=== PATIENT | male | born 1970 | race Caucasian/White ===

== ENCOUNTER 2023-10-04 13:08 | Outpatient (POV) | payer BC, SELFPAY ==
--- NOTE | 2023-10-04 13:27 | EXP.PAIN.OV ---
HPI Data of Consult Patient: new to practice Consult date: 10/04/23 Requesting Physician: Veronique Hernández APRN Consult Narrative Reason for consult: Low back pain, bilateral hip pain History of present illness: Mr. Giron is a 53 year old male who presents today as a new patient. He is a referral from Aramis Hernández's office. Today he rates his pain a 5 out of 10. Patient states that he has chronic pain it has been going on for 18+ years related to an injury that he occurred. Patient states that at that time he tried multiple interventions however the only thing that ever really gave improvement was lumbar RFA's. Patient states he is now have not several and he typically gets at least 80% relief in the last on average 24 months. Patient does state that he had been getting these with Dr. Orantes however he has not been pleased with that provider and wanted to change offices. Patient states that currently he is not at the 2-year erasto up until closer to February. Patient does state that he has started to feel a little bit more in his low back however overall right now it is still manageable. He does state when his back goes out it is very random and can be the simplest thing. He does also state that he is starting to experience more pain in and around his low back and hip area and that this is newer. He states it has been going on for the last year and he does believe part of it is related to gaining about 75 pounds. Patient did talk to his provider regarding this and believes a lot of that was noted to the right groin. Patient has had recent imaging back at the end of 2022. Patient does use a back brace occasionally to help with overall symptoms and continues to do conservative treatments such as heat and ice and topicals. Patient is currently managed with diclofenac 75 mg twice daily and gabapentin 300 mg 3 times daily. He denies any side effects from this medication. He does state that he would like us to take over these prescriptions if possible in the future. Patient states that he does not need refills at this time that he only uses it as needed and so it is not something he continuously takes.Patient is currently managed with gabapentin 300 mg 3 times a day from an outside provider. His Leonard has been reviewed and is appropriate. CC: Veronique Hernández APRN [facility] Disclaimer: The information contained in this section may have been updated after the patient was seen, as this information can be updated by other users. Medical History (Updated 10/04/23 @ 16:06 by Veronique Hernández APRN) MACO (obstructive sleep apnea) Surgical History (Updated 10/04/23 @ 14:02 by Louann Estrada RN) H/O hernia repair Family History (Updated 10/04/23 @ 14:02 by Louann Estrada RN) Other No significant family history Social History (Updated 10/04/23 @ 14:30 by Louann Estrada RN) Smoking Status: Never smoker alcohol intake: never current occupational status: other Travel in the last 8 weeks: None Review of Systems Review of Systems Review of systems:: pertinent systems reviewed and negative unless documented below Review of systems (narrative): Review of Systems: General: No recent weight changes, no fever, no sleep disturbances Respiratory: No cough, no shortness of air, no recurring pulmonary infections Cardiovascular/peripheral vascular: No chest pain, no palpitations, no edema, no shortness of breath Gastrointestinal: No new onset incontinence, normal bowel movements reported Genitourinary: No new onset incontinence Musculoskeletal: Low back pain, bilateral hip pain Psychiatric: [Normal mood/affect] Neurological: [Denies weakness in extremities], [denies balance issues] Meds Home Medications and Allergies Home Medications Medication Instructions Recorded Confirmed Type diclofenac sodium 75 mg 75 mg PO BID Pain 10/04/23 10/04/23 History tablet,delayed release gabapentin 300 mg capsule 300 mg PO TID Pain 10/04/23 10/04/23 History New Prescriptions to Start Prescriptions: Objective Narrative: Physical Exam: General: Alert and oriented x3, no acute distress, pleasant and cooperative Lungs: Respirations even and unlabored, symmetrical chest expansion Eyes: PERRL Musculoskeletal: Flexion and extension of lumbar [spine] somewhat guarded secondary to pain, [antalgic gait noted] positive Kemps test and point tenderness along bilateral SIs with positive bilateral Bigg's, Joya's, Gaenslen's, compression and distraction exam Neurological: Speech clear, no gross sensory deficit Additional findings Additional findings: Lumbar MRI without contrast 12/04/2022 Findings: Vertebral alignment is normal. No evidence of fracture. No bony mass identified. no spondylolysis. There is spondylolisthesis. The facet joints are anatomically aligned. Mild degenerative disc bulging at L4-L5 and L5-S1 otherwise there is no spinal stenosis or significant foraminal stenosis. Mild facet hypertrophic changes at L4-L5 and L5-S1 Assessment and Plan *Assessment and plan (1) Degenerative disc disease, lumbar: Status: Acute Category: Medical Code(s): M51.36 - Other intervertebral disc degeneration, lumbar region (2) Lumbar facet arthropathy: Status: Acute Category: Medical Code(s): M47.816 - Spondylosis without myelopathy or radiculopathy, lumbar region (3) Sacroiliitis: Status: Acute Category: Medical Code(s): M46.1 - Sacroiliitis, not elsewhere classified Plan Patient is experiencing significant pain in and around his low back and hips. I did discuss with the patient that he may benefit from bilateral SI injections as well as continued treatment with his lumbar RFA's in the future. Patient would like to wait before proceeding forward with the SI injections. Patient did discuss that sometimes when his back flares up that he has to take off work and use FMLA. I did senior vice president & general counsel the patient that we do not fill out this paperwork unless the patient has had a surgery with's or a significant injury such as a compression fracture. Patient did have additional questions regarding who he would go to for this. Patient was counseled that we do recommend they follow-up with her primary care provider. I did senior vice president & general counsel the patient that in future I do not have a problem refilling his diclofenac or gabapentin prescriptions and that just to call us when he needs refills. Patient was counseled that we would see him every few months if we do start doing the prescriptions patient is agreeable to this. Patient will make a follow-up appointment in the next few months. Patient has been instructed to contact the clinic with any concerns before the next appointment. Dr. Albrecht has reviewed this note and agrees with this plan of care. This note was dictated using voice recognition software and make contain errors or omissions.
[2023-10-04 14:30] VITALS: BP 151/75; PULSE 55; RESP 20; O2SAT 98; BMI 41.5
== END 2023-10-04 23:59 | disposition home or self-care (01) ==
LOC: SC.PAIN 13:11
PROVIDERS: Visit Provider Nurse Practitioner Family
DX: G89.29 Other chronic pain (principal); M51.36 Other intervertebral disc degeneration, lumbar region; M47.816 Spondylosis without myelopathy or radiculopathy, lumbar region
CPT/HCPCS: 99202; G0463

== ENCOUNTER 2024-02-07 11:17 | Outpatient (POV) | payer BC, SELFPAY ==
--- OUTSIDE RECORDS SUMMARY | 2024-02-07 11:22 | XMS_ITS | Encounter Summary ---
Author Organization [facility] Address [address] [place] [address] Phone [email or web address] [email or web address] Care Team Providers Care Magnesium Mill Operator Name Role Phone Provider, No Primary Care Provider Unavailabl e Reason for Visit * Reason Comments Return to Work / Duty Encounter Details Date Type Department Care Team (Latest Contact Info) Description 11/16/2022 1:30 PM EDT Clinical Support GINNYSTACIE [address] [place] [address] Arvin Kuhn RN [address] [place] [address] Return to work evaluation (Primary Dx) Social History Tobacco Use Types Packs/Day Years Used Date Smoking Tobacco: Never Smokeless Tobacco: Never Alcohol Use Standard Drinks/Week Comments Never 0 (1 standard drink = 0.6 oz pur e alcohol) Intimate Partner Violence Answer Date R ecorded Insults You Not on file 11/13/2020 Threatens You Not on file 11/13/2020 Screams at You Not on file 11/13/2020 Physically Hurt Not on file 11/13/2020 Intimate Partner Violence Score Not on file 11/13/2020 Alcohol Use Answer Date Recorded Alcohol Use Status Never 11/13/2020 Depression Answer Date Recorded PHQ Total Score 0 01/01/2022 Sex and Gender Information Value Date Recorded Sex Assigned at Not on file Legal Sex Male 7:14 AM CDT Gender Identity Not on file Sexual Orientation Not on file documented as of this encounter Patient Instructions * Patient Instructions* Arvin Kuhn RN - 11/16/2022 1:30 PM EDT RTW Regular Duty per release note RTC PRN documented in this encounter Progress Notes * Arvin Kuhn RN - 11/16/2022 1:30 PM EDT Subjective Willie Giron Jr is a 52 y.o. male who presents for personal return to work. 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 TM has denied claim from . TM states he was sent home due to denied claim from . TM states he went to Dr Kang and MRI order placed. TM states steroid injection in office has helped. TM states currently no pain at this time. TM states he feels ready to RTW. Triage nurse: ASC RN HPI History Reviewed: Tobacco Allergies Meds Med Hx Surg Hx Objective Visit Vitals Smoking Status Never Review of Systems PHQ-9 Total Score: 0 (11/16/2022 1:36 PM) Physical Exam Assessment: ICD-10-CM ICD-9-CM 1. Return to work evaluation Z76.89 V72.85 No orders of the defined types were placed in this encounter. Patient Instructions RTW Regular Duty per release note RTC PRN documented in this encounter Plan of Treatment Not on file documented as of this encounter Visit Diagnoses Diagnosis Return to work evaluation- Primary Other specified examination documented in this encounter Care Teams Magnesium Mill Operator Relationship Specialty Start Date End Date Provider, FRANCIA Leigh [address] PCP - General Coil Cutter 07/18/21 documented as of this encounter
--- OUTSIDE RECORDS SUMMARY | 2024-02-07 11:22 | XMS_ITS | Encounter Summary ---
Author Organization [facility] Address [address] [place] [address] Phone CareEverywhereSuppor [email or web address] Care Team Providers Care Skewer Up Name Role Phone Provider, No Primary Care Provider Unavailabl e Encounter Details Date Type Department Care Team (Late st Contact Info) Description 01/08/[address] [place] [address] Felicia Jaimes [address] [place] [address] Social History Tobacco Use Types Packs/Day Years [...] on file documented as of this encounter Miscellaneous Notes * Telephone Encounter - Felicia Jaimes - 01/08/2022 5:51 PM EDT Tm states he could not get into see Dr. Orantes today so he saw his PCP who placed him off work until he sees Dr. Orantes. He was also given medication..Tm has an appt at Dr. Orantes's office on 01/16/22 and expects to have his procedure then. He has talked with Carol Sanchez in [place] Tm said he thinks he will be fine to come back to work after he has the procedure. Advised Tm he needs to be released to regular duty to return. Tm agreed to email off-work not to CM. documented in this encounter Plan of Treatment Not on file documented as of this encounter Visit Diagnoses Not on filedocumented in this encounter Care Teams Skewer Up Relationship Specialty Start Date End Date Provider, Ariadna ARIASWFRANCIA Lehman [address] PCP - General Tapper Shank 07/18/21 documented as of this encounter
--- OUTSIDE RECORDS SUMMARY | 2024-02-07 11:22 | XMS_ITS | Encounter Summary ---
Author Organization [facility] Address [address] [place], [place] [id number] Phone CareEverywhereSuppor [email or web address]. Care Team Providers Care Commercial Makeup Artist Name Role Phone Provider, No Primary Care Provider Unavailabl e Reason for Visit * Reason Onset Date Comments Lumbosacral Impairment MSK 12/26/2021 AT [facility] Encounter Details Date Type Department Care Team (Late st Contact Info) Description 12/26/2021 Documentation [facility] Safety Ergo [address] [place] [address] Frank Guido [address] [place] [address] Social History Tobacco Use Types [...] Status Never 11/13/2020 Depression Answer Date Recorded PHQ-9 Total Score 0 12/25/2021 Sex and Gender Information Value Date Recorded Sex Assigned at Not on file Legal Sex Male 7:14 AM CDT Gender Identity Not on file Sexual Orientation Not on file documented as of this encounter Progress Notes * Frank Guido - 12/26/2021 6:03 PM EDT Willie Giron Jr is a 51 y.o. male who presents for follow up on lower back Workday ID: [id number] Appointment Date: 12/26/21 Appointment Start Time: 1802 Progress Report: TM states discomfort is feeling the same. TM states he has a history with his lower back. States the only method that helps relieve discomfort Group's utilization of EIA measures: Yes Any countermeasures in progress: n/a Improvement noted in the following areas: None Current Discomfort: 3/10 Worst Discomfort: 8/10 Location: diffuse low back Description: sharp Self countermeasures TM is completing: Ice, Heat, NSAIDS and Stretching Observation / Palpations: not assessed ROM assessed: not assessed MMT assessed: not assessed Care Administered: None PLAN Provider Contacted: No Recommend EI measures: Yes Recommended Countermeasures: Continue Previous Recommendations EIA: Asking 100% modification (however that is needed to modify) Appointment End Time: 1818 documented in this encounter Plan of Treatment Not on file documented as of this encounter Visit Diagnoses Not on filedocumented in this encounter Care Teams Commercial Makeup Artist Relationship Specialty Start Date End Date Provider, [place] [address] PCP - General Sketch Liner 07/18/21 documented as of this encounter
--- OUTSIDE RECORDS SUMMARY | 2024-02-07 11:22 | XMS_ITS | Encounter Summary ---
Author Organization [facility] Address [address] [place] [address] Phone CareEverywhereSuppor [email or web address] Care Team Providers Care Dry Wall Installations Mechanic Name Role Phone Provider, No Primary Care Provider Unavailabl e Encounter Details Date Type Department Care Team (Late st Contact Info) Description 01/08/2022 Telephone GINNYKEYLA [address] [place] [address] Felicia Jaimes [address] [place] [address] Social History Tobacco Use Types [...] Miscellaneous Notes * Telephone Encounter - Felicia Theodore - 01/08/2022 12:14 PM EDT Message received that 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 Pc to Tm- explained [facility] can not put him off work or cover his time without seeing him. Tm said he is planning on going down to see Dr. Orantes. Requested he call Cm after seeing him. documented in this encounter Plan of Treatment Not on file documented as of this encounter Visit Diagnoses Not on filedocumented in this encounter Care Teams Dry Wall Installations Mechanic Relationship Specialty Start Date End Date Provider, [place] [address] PCP - General Finger Waver 07/18/21 documented as of this encounter
--- OUTSIDE RECORDS SUMMARY | 2024-02-07 11:22 | XMS_ITS | Encounter Summary ---
Author Organization [facility] Address [address] [place] [address] Phone CareEverywhereSuppor [email or web address] Care Team Providers Care Facilities Officer Name Role Phone Provider, No Primary Care Provider Unavailabl e Reason for Visit * Reason Comments Return to Work / Duty Encounter Details Date Type Department Care Team (Latest Contact Info) Description 08/27/2022 3:30 PM EDT Clinical Support GINNYSTACIE [place] [address] [facility] [address] [place] [address] Elaine Jasso, RN [address] [place] [address] Return to work exam (Primary Dx) Social History Tobacco Use Types Packs/Day Years Used Date Smoking Tobacco: Never Smokeless Tobacco: Never Tobacco Cessation:Counseling Given: Not Answered Alcohol Use Standard Drinks/Week Comments Never 0 [...] on file documented as of this encounter Last Filed Vital Signs Vital Sign Reading Time Taken Comments Blood Pressure 141/87 08/27/2022 3:11 PM EDT Pulse 63 08/27/2022 3:11 PM EDT Temperature - - Respiratory Rate - - Oxygen Saturation 96% 08/27/2022 3:11 PM EDT Inhaled Oxygen Concentration - - Weight - - Height - - Body Mass Index - - documented in this encounter Patient Instructions * Patient Instructions* Elaine Jasso RN - 08/27/2022 3:30 PM EDT Continue care per personal providers. May return to work 08/27/22. Return to S PRN. documented in this encounter Progress Notes * Elaine Jasso RN - 08/27/2022 3:30 PM EDT Subjective Willie Giron Jr is a 52 y.o. male who presents for personal return to work. 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. GINNY was seen by PCP, Dr. Grubbs, and multiple other eye specialists for bilateral eye infection. Symptoms began 08/03/22 during work. States it initially began as itching and yellow discharge in the left eye. Progressed the next day (08/04/22) to eye pain, swelling, visual changes, and facial drooping. TM went to PCP, Dr. Lares at , and was told to go to an ER. TM went to the ER in [facility]. Had labs drawn, IV's placed, and a CT scan. No posterior eye or brain involvement. Discharged home and sent to another specialist in [place]. Was then prescribed multiple PO and ophthalmic antibiotics. At this point, the right eye also presented with swelling and vision loss for about a week. The TM saw his PCP again who referred him to Romie. New abx prescribed. Therapy completed as of today. Last visit with Romie was 08/27/22. Will f/u w/ Romie 10/01/22. PCP f/u PRN. TM states hefeels ready to RTW and feels almost back to baseline. Denies current vision loss, photophobia, dizziness, pain. Triage nurse: Elaine Jasso RN, BSN HPI History Reviewed: Tobacco Allergies Meds Problems Med Hx Surg Hx Objective Visit Vitals BP 141/87 (BP Location: Right arm, Patient Position: Sitting) Pulse 63 SpO2 96% Smoking Status Never Review of Systems PHQ-9 Total Score: 0 (08/27/2022 3:19 PM) Physical Exam Assessment: ICD-10-CM ICD-9-CM 1. Return to work exam Z76.89 V72.85 No orders of the defined types were placed in this encounter. Patient Instructions Continue care per personal providers. May return to work 08/27/22. Return to [facility] PRN. documented in this encounter Plan of Treatment Not on file documented as of this encounter Visit Diagnoses Diagnosis Return to work exam- Primary documented in this encounter Care Teams Facilities Officer Relationship Specialty Start Date End Date Provider, [place] [address] PCP - General Music Department Chair 07/18/21 documented as of this encounter
--- OUTSIDE RECORDS SUMMARY | 2024-02-07 11:22 | XMS_ITS ---
Care Plan - [facility], [facility] Created on: February 07, 2024 Willie Giron : 1970 Sex: Male Author Organization [facility] , [facility] Address [address] [place] [phone] Phone Care Team Providers Care Water Meter Reader Name Role Phone Arnaud RODRÍGUEZ, Branden Unavailable [phone] Edgar RODRÍGUEZ, Aramis Sarah Unavailable [phone]
--- OUTSIDE RECORDS SUMMARY | 2024-02-07 11:22 | XMS_ITS | Encounter Summary ---
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 male. Chief Complaint Blurred Near Vision OP HPI History of infection in left eye 2 weeks ago. He was seen at ER in hospital in [place], [place]. He saw a specialist in [place], [place] and took fortified antibiotics. He had a CT scan of head that cameback normal. He reported having some sinus and allergy issues prior to eyelid swelling. Last edited by Ishaan Grubbs, OD on 08/20/2022 3:49 PM. ROS Positive for: Eyes (history of histo scars) Negative for: Constitutional, Gastrointestinal, Neurological, Skin, Genitourinary, Musculoskeletal,HENT, Endocrine, Cardiovascular, Respiratory, Psychiatric, Allergic/Imm, Heme/Lymph Last edited by Ishaan Grubbs, OD on 08/20/2022 3:28 PM. Visual Acuity Visual Acuity (Snellen - Linear) Right Left Dist sc 20/40 20/200 Dist ph sc NI NI Dist ph cc NI NI Correction: Glasses Pupils Pupils Pupils Dark Light APD Right PERRL 6 3 None Left PERRL 6 3 None Extraocular Movement Extraocular Movement Right Left Full, Ortho Full, Ortho Confrontational Visual Quinonez Visual Quinonez Left Right Full Full Tonometry Tonometry (Non-contact air puff, 4:09 PM) Right Left Pressure 20 20 Wearing Rx Wearing Rx Sphere Cylinder [place] Add Right +1.25 -0.75 043 +2.00 Left +1.75 -1.00 110 +2.00 Type: Bifocal Wearing Rx #2 Sphere Cylinder [place] Add Right +1.00 -1.00 026 Left +2.00 -1.25 128 Type: autorefraction Keratometry Keratometry (Automated) K1 [place] K2 [place] Mires Right 40.25 176 41.75 086 Normal Left 40.75 005 42.75 095 Normal Dilation Dilation Both eyes: 0.5% tropicamide @ 3:54 PM Main Ophthalmology Exam External Exam Right Left External Normal Normal Slit Lamp Exam Right Left Lids/Lashes Normal Normal Conjunctiva/Sclera White and quiet White and quiet Cornea Anterior basement membrane dystrophy Anterior basement membrane dystrophy -superior map dot appearance, poor tear film, mild edema Anterior Chamber Deep and quiet Deep and quiet Iris Round and reactive Round and reactive Lens Clear Clear Vitreous Normal Normal Fundus Exam Right Left Disc Normal Normal C/D Ratio 0.2 0.2 Macula Flat and Intact Flat and Intact Vessels Normal Normal Periphery Normal Normal <div id= MAIN_EXAM_REVIEWED ></div> Willie was seen today for blurred near vision op. 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
--- OUTSIDE RECORDS SUMMARY | 2024-02-07 11:22 | XMS_ITS ---
Author Organization [facility] , [facility] Address [address] [place] [phone] Phone Care Team Providers Care Desizing Machine Back Tender Name Role Phone Arnaud RODÍRGUEZ, Branden Unavailable [phone] Edgar RODRÍGUEZ, Aramis Sarah Unavailable [phone] Problems Includes: Active, inactive, and resolved Problems All Visits Onset Date Resolved Date Provider Condition S tatus Lower Back Pain 05/10/2023 Aramis Hernández MD Act heather Last Documented On 4 1:17PM ; [facility], [facility] Plan of Treatment Instructions to patient Lose weight Last Documented On 4 1:21PM ; [facility], [facility] Assessments Includes: Assessments for all patient encounters Findings Encounter Date Overweight Physician Specified with Aramis Hernández MD 05/10/2023 Last Documented On 4 4:53PM ; [facility], [facility] Instructions Includes: Instructions for all patient encounters Instructions to patient Lose weight Last Documented On 4 1:21PM ; [facility] Medical Equipment - Implanted Devices Includes: Current and historical Devices No Medical Equipment Recorded Medications Includes: Current and historical Medications Current Medications (continue as prescribed) Gabapentin 300 MG Oral Capsule 05/03/2023 Provider: Diagnosis: Last Documented On 4 1:17PM By Jeniffer Luna ; [facility], [facility] Diclofenac Sodium 75 MG Oral Tablet Delayed Release 03/12/2023 Provider: Betito Sood Diagnosis: Last Documented On 4 1:17PM By Jeniffer Luna ; [facility], [facility] Past Medications on file Gabapentin 300 MG Oral Capsule 05/10/2023 - 07/09/2023 Provider: Aramis Hernández MD Diagnosis: three times a day Last Documented On 4 2:08PM By Aramis Hernández ; [facility], [facility] Medications Administered Includes: Administered Medications in patient's chart No Administered Medications Recorded Vital Signs Includes: Vital Signs from 02/06/2023 through 02/07/2024 Vital Name 05/10/2023 12:58P Height (in) 73 Weight (lb) 230 Body Mass Index 30.3 Body Surface Area 2.3 Pain Level 3 Note: mbb Last Documented: On 05/10/2023 12:58P M ; [facility], [facility] Results Includes: Results from 02/06/2023 through 02/07/2024 No Results Recorded For Specified Dates History of Present Illness History of Present Illness not supported for this document type No History of Present Illness Recorded Social History Description Last Updated Tobacco non-user 05/10/2023 Last Documented On 4 4:53PM ; [facility], [facility] Exercising regularly 05/10/2023 Last Documented On 4 4:53PM ; [facility] No caffeine use 05/10/2023 Last Documented On 4 4:53PM ; [facility] No recent change in diet 05/10/2023 Last Documented On 4 4:53PM ; [facility] Not a current smoker. 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 Last Documented On 4 4:53PM ; [facility] Smoking Status Unknown Procedures and Surgical History Surgical History Last Updated History of hernia repair 05/10/2023 Last Documented On 4 4:53PM ; [facility], [facility] Medical History Includes: Medical History in patient's chart Description Last Updated History of Sleep Apnea 05/10/2023 Last Documented On 4 4:53PM ; [facility], [facility] Use of CPAP 05/10/2023 Last Documented On 4 4:53PM ; [facility] Family History Includes: Family History in patient's chart Description Last Updated No significant family history 05/10/2023 Last Documented On 4 4:53PM ; [facility] Review of Systems Review of Systems not supported for this document type No Review of Systems Recorded Mental Status Description No anxiety Functional Status No Functional Status Recorded Physical Exam Physical Exam not supported for this document type No Physical Exam Recorded Allergies Includes: Active, inactive, and resolved Allergies Substance Type Reaction Onset Date Resolved Date Statu s Codeine Allergy Skin Rashes / Er uption of skin, Hives / Urticaria 05/10/2023 Active Last Documented On 4 1:18PM ; [facility] Encounters Includes: Encounters from 02/06/2023 through 02/07/2024 Encounter Provider Location Date Check-In Time Check-Out Time Diagnosis Physician Specified Aramis Hernández MD [facility] 05/10/19 24 12:40PM 1:29PM Overweight Insurance Includes: Active Insurance Policies Plan Name Member ID Group # Subscriber Relationship Effect heather Dates 1 - [facility] [id number] Willie Giron Self Clinical Notes Includes: Signed Clinical Notes starting from 03/05/2022 * Progress note Date Encounter Last Documented by 05/10/2023 Physician Specified Last toro austin on 05/18/2023; 4:53 PM, Aramis Hernández MD; [facility] Active Problems & Conditions - Lower Back Pain Chief Complaint The Chief Complaint is: Low back pain. Referred Here Referred by PCP. History of Present Illness Willie Giron is a 53 year old male. - Symptoms Catching, giving way and locking Walking and rest makes symptoms better. Bending and lifting makes symptoms worse. - Allergy list reviewed - Problem list reviewed - Medication list reviewed - Patient pain level from 1-10: 3 - History of Physical Therapy Kort - History of Home Exercise - History of Chiropractic - History of Injections Facets Medications used for this condition: 53-year-old man with longstanding history of low back pain. He said recently he started getting a little bit of pain with the outside of his right hip. He is worked with a different doctor's office he said for years he gets lumbar ablations 3 levels in his only thing that really helped his back pain he is done physical therapy intensive care anaesthetist stretches and exercises in the past no evidence really help. Currently takes gabapentin p.r.n. and diclofenac twice a day. Said he is switching care because he does not like the organization in his other office. Said he would just like to be able to get nerve oliva occasionally when he needs it. He denies any weakness or numbness in his legs. Current Medication - Diclofenac Sodium 75 MG Oral Tablet Delayed Release 30 days, 0 refills - Gabapentin 300 MG Oral Capsule 30 days, 0 refills Past Medical/Surgical History Reported: Use of CPAP. Diagnoses: Sleep Apnea Surgical: - Hernia repair Social History Not a current smoker. Current diet: No recent change in diet. Caffeine use: No caffeine use. Tobacco use: Tobacco non-user. Alcohol: Not using alcohol. Drug Use: Not using drugs. Habits: Exercising regularly. 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 Allergies - Codeine Reaction: Hives / Urticaria, Skin Rashes / Eruption of skin Family History No significant family history Review Of Systems Systemic: Not feeling tired and no recent weight loss. Recent weight gain. Head: No headache and no sinus pain. Eyes: No vision problems and no Cataracts. Glasses/Contacts. No Glaucoma. Otolaryngeal: No hearing loss and no tinnitus. Cardiovascular: No chest pain or discomfort, no palpitations, no Hypertension, and no High Cholesterol. Pulmonary: No daytime asthma symptoms and no chronic cough. No wheezing. Gastrointestinal: No heartburn and no abdominal pain. No Indigestion, no Acid Reflux, no Peptic Ulcer, no GI Stomach Bleed, and no Ulcers. Endocrine: No hot flashes, no muscle weakness, no Diabetes, no Hypothyroid, and no Hyperthyroid. Hematologic: No easy bleeding, no tendency for easy bruising, and no Anemia. Musculoskeletal: No Arthritis and no lower back pain. No soft tissue swelling and no localized joint pain. Neurological: No dizziness, no convulsions, and no numbness. Psychological: No anxiety, no emotional lability, no depression, and no insomnia. Not crying for no reason. Skin: No dry skin. No Ulcers, no Scars, and no rash. Allergic and Immunologic: No complaint of seasonal allergic reaction. Physical Findings - Vitals taken 05/10/2023 12:58 pm mbb Height 73 in Weight 230 lbs Body Mass Index 30.3 kg/m2 Body Surface Area 2.3 m2 Pain Level 3 Pleasant, alert and oriented x3 Patient walks with a normal gait and no assistive device No acute distress. Non-labored respirations Normal affect, appropriate mood. Extraocular motor movements intact. Normal hearing He is obese Patient is nontender to palpation lower lumbar spine. No bruising. Negative straight leg raise test bilaterally. Good strength in the bilateral extremities. He gets in his toes and heels. He is difficulty bending forward to touch his toes with knee straight. He can not reach past his ankles. Assessment - Overweight He brings in lumbar MRI from November 2022. He is disc bulging worse at L3 L4 and L4-L5. No significant canal stenosis. No subluxation or fracture Assessment: Chronic low back pain, lumbar facet arthropathy Plan: Dr. Hernández had discussions. No role for surgery. Certainly reasonable continue radiofrequency ablation, facet rhizotomy. We can also make referral as he can do this through pain management he said he would like to do that no role for surgery. We will give him a note to do some formal physical therapy we will refer him to establish care with pain management at this point we can see him back as needed Patient was seen by Dr. Hernández and myself. Electronically signed Maurice Abarca PA-C Previous Tests Imaging: X-Ray: An X-ray was performed. MRI Scan: An MRI was performed L-spine MRI 12/04/22 @ [facility]. Basic Management Procedures And Services: - Brace Available previous imaging studies were reviewed Available previous history reviewed Counseling/Education - Lose weight Plan StartCited - Other Gabapentin 300 MG capsule three times a day, 30 days, 1 refills EndCited Notes This dictation was done with voice recognition software and may contain errors and omissions. Practice Management Use of tobacco assessment performed Review of medications documented. Care Team - Branden Lares MD Health Reminders - Assess BMI satisfied 05/10/2023. - Assess Tobacco Use satisfied 05/10/2023. - Follow Up Plan BMI Management satisfied 05/10/2023.
--- OUTSIDE RECORDS SUMMARY | 2024-02-07 11:22 | XMS_ITS | Encounter Summary ---
Author Organization [facility] Address [address] [place], [place] [id number] Phone [email or web address] Care Team Providers Care Sales Clerk Name Role Phone Provider, No Primary Care Provider Unavailabl e Reason for Visit * Reason Onset Date Comments Lab Result Follow up 10/24/2021 Negative co vid test, #2 attempt to notify Encounter Details Date Type Department Care Team (Late st Contact Info) Description 10/24/[address] [place] [address] Lily Kolb NP [address] [place] [address] Social History Tobacco Use Types [...] Answer Date Recorded PHQ-9 Total Score 0 07/23/2021 Sex and Gender Information Value Date Recorded Sex Assigned at Not on file Legal Sex Male 7:14 AM CDT Gender Identity Not on file Sexual Orientation Not on file documented as of this encounter Miscellaneous Notes * Telephone Encounter - Lily Kolb NP - 10/24/2021 11:08 AM EDT 1109: Attempt to notify of negative covid test result, message left to call [facility] at [phone] or [facility] at [phone]. Attempt #2 documented in this encounter Plan of Treatment Not on file documented as of this encounter Visit Diagnoses Not on filedocumented in this encounter Care Teams Sales Clerk Relationship Specialty Start Date End Date Provider, [place] [address] PCP - General Supervisor Paint Roller Covers 07/18/21 documented as of this encounter
--- OUTSIDE RECORDS SUMMARY | 2024-02-07 11:22 | XMS_ITS | Encounter Summary ---
Author Organization [facility] Address [address] [place] [phone] Phone [email or web address] Care Team Providers Care Heat Engineering Teacher Name Role Phone Provider, No Primary Care Provider Unavailabl e Reason for Visit * Reason Comments Blurred Distance Vision OP Distance visi on has been improving gradually. His PCP released him to go back to work. He feels that he can drive safely. Encounter Details Date Type Department Care Team (Late st Contact Info) Description 08/27/2022 2:00 PM EDT [facility] [place] [address] [place] [address] Ishaan Grubbs, OD [address] [place] [address] Blurry vision, bilateral [H53.8 (ICD-10-CM)] (Primary Dx) Social History Tobacco Use Types [...] Progress Notes * Ishaan Grubbs, OD - 08/27/2022 2:00 PM EDT Subjective: Willie Giron Jr is a 52 y.o. male. Chief Complaint Blurred Distance Vision OP HPI Blurred Distance Vision OP Additional comments: Distance vision has been improving gradually. His PCP released him to go back to work. He feels that he can drive safely. Last edited by Ishaan Grubbs, OD on 08/27/2022 2:32 PM. ROS Positive for: Eyes (history of Histo scars in eyes with laser treatment; no changes in Amsler grid reported) Negative for: Constitutional, Gastrointestinal, Neurological, Skin, Genitourinary, Musculoskeletal,HENT, Endocrine, Cardiovascular, Respiratory, Psychiatric, Allergic/Imm, Heme/Lymph Last edited by Ishaan Grubbs, OD on 08/27/2022 7:11 PM. Visual Acuity Visual Acuity (Snellen - Linear) Right Left Dist cc 20/50 20/50 Dist ph cc 20/40 20/40 Correction: Glasses Pupils Pupils Pupils Dark Light APD Right PERRL 6 3 None Left PERRL 6 3 None Extraocular Movement Extraocular Movement Right Left Full, Ortho Full, Ortho Confrontational Visual Quinonez Visual Quinonez Left Right Full Full Tonometry Tonometry (Non-contact air puff, 7:28 PM) Right Left Pressure 18 15 Not recorded Wearing Rx Wearing Rx Sphere Cylinder [place] Add Right +1.25 -0.75 043 +2.00 Left +1.75 -1.00 110 +2.00 Type: Bifocal Wearing Rx #2 Sphere Cylinder [place] Add Right +3.25 -0.75 043 Left +3.75 -1.00 110 Type: SVL Wearing Rx #3 Sphere Cylinder [place] Add Right +2.50 -0.75 043 Left +3.00 -1.00 110 Type: SVL Keratometry Keratometry (Automated) K1 [place] K2 [place] Mires Right 40.00 176 42.25 086 Normal Left 40.75 167 42.25 077 Normal Manifest Refraction Manifest Refraction Sphere Cylinder [place] Dist [place] Add Right +1.25 -0.75 043 20/40 +2.00 Left +1.75 -1.00 110 20/40 +2.00 Eyeglass Final Rx Eyeglass Final Rx Sphere Cylinder [place] Dist VA Add Right +1.25 -0.75 043 20/40 +2.00 Left +1.75 -1.00 110 20/40 +2.00 Type: PAL Expiration Date: 08/28/2023 Main Ophthalmology Exam External Exam Right Left External Normal Normal Slit Lamp Exam Right Left Lids/Lashes Normal Normal Conjunctiva/Sclera White and quiet White and quiet Cornea 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
--- OUTSIDE RECORDS SUMMARY | 2024-02-07 11:22 | XMS_ITS | Encounter Summary ---
Author Organization [facility] Address [address] [place] [phone] Phone [email or web address] Care Team Providers Care Medical Anthropologist Name Role Phone Provider, No Primary Care Provider Unavailabl e Encounter Details Date Type Department Care Team (Late st Contact Info) Description 01/05/2022 Telephone JOHN [address] [place] [address] Felicia Jaimes [address] [place] [address] Social History Tobacco Use Types [...] * Telephone Encounter - Felicia Theodore - 01/05/2022 4:20 PM EDT Memorial Designer called and said Tm is unable to do any of his regular 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 Restrictions reviewed with Memorial Designer. Advised Memorial Designer that Tm may work as long as he follows the restrictions and if Tm needs restrictions increased, he shouldreturn to [facility]. documented in this encounter Plan of Treatment Not on file documented as of this encounter Visit Diagnoses Not on filedocumented in this encounter Care Teams Medical Anthropologist Relationship Specialty Start Date End Date Provider, [place] [address] PCP - General Equipment Operator 07/18/21 documented as of this encounter
--- OUTSIDE RECORDS SUMMARY | 2024-02-07 11:22 | XMS_ITS | Clinical Summary ---
Author Organization [facility] Address [address] [place], [place] [phone] Phone [email or web address] Care Team Providers Care Portable Machine Sander Name Role Phone Provider, No Primary Care Provider Unavailabl e Allergies Active Allergy Reactions Criticality Noted Date Comments Codeine 07/04/2018 Tylenol 3 Medications glucosamine-alfonso droitin 500-400 MG tablet Take 1 tablet by mouth 3 (three) times a day. Active Multiple Vitamin (MULTIVITAMIN) tablet Take 1 tablet by mouth 1 (one) time each day. Active loratadine (CLARITIN) 10 MG tablet Take 10 mg by mouth 1 (one) time each day if needed. 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 07/17/2009 Overview (08/18/2017): Degeneration of cervical intervertebral disc 01/2009 Overview (08/18/2017): Neck pain 10/08/2008 Overview (06/16/2023): Low back pain 08/23/2007 Overview (08/18/2017): Encounter for hearing examin ation following failed hearing screening 03/03/2007 Overview (08/18/2017): Other examination of ears and hearing 03/03/2007 Overview (08/18/2017): Resolved Problems Problem Noted Date Diagnosed Date Resolved Date Allergic rhinitis 04/07/2016 07/04/2018 Overview (08/18/2017): Acute upper respiratory infection 01/30/2009 07/04/2018 Overview (08/18/2017): Social History Tobacco Use Types Packs/Day Years [...] Date Recorded PHQ Total Score 0 01/01/2022 Stress Answer Date Recorded Stress in your Life Not on file 01/24/2024 Dealing with Stress 3 01/24/2024 Sex and Gender Information Value Date Recorded Sex Assigned at Not on file Legal Sex Male 7:14 AM CDT Gender Identity Not on file Sexual Orientation Not on file Last Filed Vital Signs Vital Sign Reading Time Taken Comments Blood Pressure 150/92 06/16/2023 4:37 PM EDT Pulse 67 06/16/2023 4:37 PM EDT Temperature 36.3 ??C (97.3 ??F) 06/16/2023 4:37 PM ED T Respiratory Rate 16 06/16/2023 4:37 PM EDT Oxygen Saturation 97% 06/16/2023 4:37 PM EDT Inhaled Oxygen Concentration - - Weight 152 kg (335 lb 9.6 oz) 06/16/2023 4:37 PM EDT Height 185.4 cm (6' 1 ) 06/16/2023 4:37 PM EDT Body Mass Index 44.28 06/16/2023 4:37 PM EDT Plan of Treatment Health Maintenance Due Date Last Done Comments Dental Cleaning/Exam 1970 HIV Screening 1970 Hepatitis C Screening 1970 Tetanus (Tdap or Td) Immunization 1981 Hep B Infection Screening - Surface Antigen 02/26/1988 Hepatitis B Immunization (1 of 3 - 19+ 3-dose series) 1989 Colorectal Cancer Screening 02/26/2000 Zoster Immunization (1 of 2) 02/26/2020 Annual Preventive Exam 09/26/2021 09/26/2020 Covid-19 Immunization (1 - 2 024-25 season) 2023 Influenza Immunization (#1) 2023 HIB Immunization Aged Out No longer e ligible based on patient's age to complete this topic HPV Immunization Aged Out No longer e ligible based on patient's age to complete this topic Hepatitis A Immunization Aged Out No longer eligible based on patient's age to complete this topic Pneumococcal: Ped (0 to 5 Yr s) and At-Risk Member (6 to 64 Yrs) Aged Out No longer e ligible based on patient's age to complete this topic Polio Immunization Aged Out No longer eligible based on patient's age to complete this topic Insurance [facility] Care Teams Portable Machine Sander Relationship Specialty Start Date End Date Provider, [place] [address] PCP - General Java Systems Analyst 07/18/21
--- OUTSIDE RECORDS SUMMARY | 2024-02-07 11:22 | XMS_ITS | Encounter Summary ---
Author Organization [facility] Address [address] [place] [id number] Phone [email or web address] Care Team Providers Care Solid Fiber Paster Operator Name Role Phone Provider, No Primary Care Provider Unavailabl e Reason for Visit * Reason Comments Weight Issue Was wanting to come in to talk about weight loss. Possible wegovy Encounter Details Date Type Department Care Team (Late st Contact Info) Description 03/29/2023 2:30 PM EST Office Visit [facility] [address] [place] [address] Lily Kolb NP [address] [place] [address] Weight loss counseling, encounter for (Primary Dx); Adult BMI 45.0-49.9 kg/sq m (CMS/HCC) Social History Tobacco Use Types Packs/Day Years [...] Sign Reading Time Taken Comments Blood Pressure 131/74 03/29/2023 2:35 PM EST Pulse 68 03/29/2023 2:35 PM EST Temperature 36.1 ??C (97 ??F) 03/29/2023 2:35 PM EST Respiratory Rate - - Oxygen Saturation 97% 03/29/2023 2:35 PM EST Inhaled Oxygen Concentration - - Weight 156 kg (345 lb) 03/29/2023 2:35 PM EST Height 184.2 cm (6' 0.5 ) 03/29/2023 2:35 PM EST Body Mass Index 46.15 03/29/2023 2:35 PM EST documented in this encounter Progress Notes * Lily Kolb NP - 03/29/2023 2:30 PM EST Subjective: Willie Giron Jr is a 53 y.o. male. Chief Complaint: Chief Complaint Patient presents with Weight Issue Was wanting to come in to talk about weight loss. Possible wegovy History Reviewed: The following portions of the patient's chart were reviewed in this encounter and updated as appropriate: Tobacco Allergies Meds Problems Med Hx Surg Hx Fam Hx Subjective: Willie Giron Jr is a 53 y.o. male. Chief Complaint: Chief Complaint Patient presents with Weight Issue Was wanting to come in to talk about weight loss. Possible wegovy History Reviewed: The following portions of the patient's chart were reviewed in this encounter and updated as appropriate: Tobacco Allergies Meds Problems Med Hx Surg Hx Fam Hx Pt presents to discuss weight loss. Reports he has put on about 75 pounds within the last year due to changing jobs and current job having much less activity. Also reports eating out a lot. Would like to discuss weight loss shot . Has recently began trying to eat better. Reports labs about 3 months ago with PCP that were good , no current medications. Does report ongoing low back pain and states his PCP has told him he has to lose weight to decrease pain. Reports he recently received a treadmill from family so has began exercising more. Review of Systems Constitutional: Negative. HENT: Negative. Eyes: Negative. Respiratory: Negative for cough, chest tightness and shortness of breath. Cardiovascular: Negative for chest pain, palpitations and leg swelling. Gastrointestinal: Negative. Musculoskeletal: Positive for back pain. Skin: Negative. Neurological: Negative. Endo: Negative. Psychiatric/Behavioral: Negative. Hematologic: negative Genitourinary: Negative for decreased urine volume, difficulty urinating, dysuria, hematuria and urgency. Visit Vitals BP 131/74 Pulse 68 Temp 97 ??F (Temporal) Ht 6' 0.5 Wt (!) 345 lb SpO2 97% BMI 46.15 kg/m?? Smoking Status Never BSA 2.83 m?? Objective: Physical Exam Constitutional: Appearance: Normal appearance. He is obese. Neurological: General: No focal deficit present. Mental Status: He is alert and oriented to person, place, and time. Psychiatric: Mood and Affect: Mood normal. Behavior: Behavior normal. Assessment/Plan: Diagnoses and all orders for this visit: Weight loss counseling, encounter for Adult BMI 45.0-49.9 kg/sq m ([facility]) We discussed pharmacological weight loss options, including the recent supply issues. We discussed potential medication s/e and pt stated at that time he would rather try on his own for longer and ifunable to lose weight would return to discuss further. We discussed calories in/calories out, using [employer] to track food intake, getting at least 45 minutes of exercise daily. Will f/u as needed. Time in care and counseling of patient 35 minutes. Plan of care formulated using shared decision making and reviewed with patient at the conclusion oftoday's visit. Education was provided in regards to diagnosis, management and any prescribed or recommended OTC medications. Patient verbalizes understanding of and agreement with management plan. Lily Kolb NP Note to patient: The Century Cures Act makes medical notes like these available to patients inthe interest of transparency. However, be advised this is a medical document. It is intended as peer to peer communication. It is written in medical language and may contain abbreviations or verbiagethat are unfamiliar. It may appear blunt or direct. Medical documents are intended to carry relevant information, facts as evident, and the clinical opinion of the practitioner. RTISING CLERK documented in this encounter Plan of Treatment Not on file documented as of this encounter Visit Diagnoses Diagnosis Weight loss counseling, encounter for- Primary Adult BMI 45.0-49.9 kg/sq m (CMS/HCC) documented in this encounter Care Teams Solid Fiber Paster Operator Relationship Specialty Start Date End Date Provider, FRANCIA Leigh [id number] PCP - General Land Measurer 07/18/21 documented as of this encounter
--- OUTSIDE RECORDS SUMMARY | 2024-02-07 11:22 | XMS_ITS | Encounter Summary ---
Author Organization [facility] Address [address] [place] [id number] Phone [email or web address] Care Team Providers Care Jacker Name Role Phone Provider, No Primary Care Provider Unavailabl e Reason for Visit * Reason Comments Follow Up Ear / Eye / Nose/ Throat Issue S&S started over the weekend, TM stated. Cough, runny nose, body aches. Encounter Details Date Type Department Care Team ([facility] Contact Info) Description 06/16/2023 5:00 PM EDT Office Visit [facility] [address] [place] [address] Lily Kolb, CUSTOMER SERVICE CASHIER [address] [place] [address] Influenza A (Primary Dx); Acute cough; Elevated blood pressure reading in office without diagnosis of hypertension Social History Tobacco Use Types Packs/Day Years [...] Mass Index 44.28 06/16/2023 4:37 PM EDT documented in this encounter Patient Instructions * Patient Instructions* Lily Kolb NP - 06/16/2023 5:00 PM EDT You tested positive for the flu today. Tamiflu prescription, take twice a day for 5 days. Use over the counter medications for symptoms, increase oral fluids, rest. If you feel well enough, you may remain at work. If you need to take time off to recover please contact your GL or HR to discuss your options. If you choose to file for FML, please bring your paperwork to the [address] clinic for completion once you RTW as long as you are able to return on the date below, if longer time is needed off work you will need to see PCP to extend your time off. If you choose to file for FML your return to work date is 06/22/23, and you may resume work, if you need to be off longer than this you will need to be seen by PCP or this clinic for extended time off. If you are continuing to have a cough upon RTW, masking is highly encouraged. documented in this encounter Progress Notes * Lily Kolb NP - 06/16/2023 5:00 PM EDT Subjective: Willie Giron Jr is a 53 y.o. male. Chief Complaint: Chief Complaint Patient presents with Follow Up Ear / Eye / Nose/ Throat Issue S&S started over the weekend, TM stated. Cough, runny nose, body aches. History Reviewed: The following portions of the patient's chart were reviewed in this encounter and updated as appropriate: Tobacco Allergies Meds Problems Med Hx Surg Hx Fam Hx Pt presents for c/o of 4 day history of rhinorrhea, cough, body aches (not sure if these are related), symptoms are worsening and is now having productive cough and chest congestion. No covid or flu vaccines. No known sick contacts. Initially though symptoms were related to allergies. Review of Systems Constitutional: Negative. HENT: Positive for congestion, postnasal drip and rhinorrhea. Negative for sinus pressure, sinus pain and sore throat. Eyes: Negative. Respiratory: Positive for cough. Negative for shortness of breath and wheezing. Gastrointestinal: Negative. Neurological: Negative for headaches. Psychiatric/Behavioral: Negative. Visit Vitals BP (!) 150/92 Pulse 67 Temp 97.3 ??F Resp 16 Ht 6' 1 Wt (!) 335 lb 9.6 oz SpO2 97% BMI 44.28 kg/m?? Smoking Status Never BSA 2.8 m?? Objective: Physical Exam Constitutional: Appearance: Normal appearance. He is well-developed. He is not ill-appearing. HENT: Head: Normocephalic. Right Ear: Tympanic membrane, ear canal and external ear normal. Left Ear: Tympanic membrane, ear canal and external ear normal. Nose: Rhinorrhea present. No mucosal edema. Right Sinus: No maxillary sinus tenderness or frontal sinus tenderness. Left Sinus: No maxillary sinus tenderness or frontal sinus tenderness. Mouth/Throat: Mouth: Mucous membranes are moist. Pharynx: Oropharynx is clear. Posterior oropharyngeal erythema present. Eyes: Extraocular Movements: Extraocular movements intact. Neck: Thyroid: No thyromegaly. Cardiovascular: Rate and Rhythm: Normal rate and regular rhythm. Heart sounds: Normal heart sounds. Pulmonary: Effort: Pulmonary effort is normal. Breath sounds: Normal breath sounds. Comments: Hacking cough during exam Lymphadenopathy: Cervical: No cervical adenopathy. Skin: Capillary Refill: Capillary refill takes less than 2 seconds. Neurological: General: No focal deficit present. Mental Status: He is alert and oriented to person, place, and time. Psychiatric: Mood and Affect: Mood normal. Behavior: Behavior normal. Assessment/Plan: Diagnoses and all orders for this visit: Influenza A - oseltamivir (Tamiflu) 75 MG capsule; Take 1 capsule (75 mg total) by mouth in the morning and 1 capsule (75 mg total) in the evening. Do all this for 5 days. Acute cough - POCT Influenza A/B + COVID-19 Antigen - Shasha 2 Analyzer - Quidel ([id number]) - promethazine-dextromethorphan (PROMETHAZINE-DM) 6.25-15 MG/5ML syrup; Take 5 mL by mouth 4 (four)times a day if needed for cough for up to 7 days. Elevated blood pressure reading in office without diagnosis of hypertension Positive flu A instructions below Elevated blood pressure- pt reports typically normal BP, once recovered from illness will recheck BP and f/u if remains elevated. Patient Instructions You tested positive for the flu today. Tamiflu prescription, take twice a day for 5 days. Use over the counter medications for symptoms, increase oral fluids, rest. If you feel well enough, you may remain at work. If you need to take time off to recover please contact your GL or HR to discuss your options. If you choose to file for FML, please bring your paperwork to the [address] clinic for completion once you RTW as long as you are able to return on the date below, if longer time is needed off work you will need to see PCP to extend your time off. If you choose to file for FML your return to work date is 06/22/23, and you may resume work, if you need to be off longer than this you will need to be seen by PCP or this clinic for extended time off. If you are continuing to have a cough upon RTW, masking is highly encouraged. Plan of care formulated using shared decision making and reviewed with patient at the conclusion oftoday's visit. Education was provided in regards to diagnosis, management and any prescribed or recommended OTC medications, including instruction on safe use and discussion of potential s/e of prescribed medications. Patient verbalizes understanding of and agreement [...] and the clinical opinion of the practitioner. documented in this encounter Plan of Treatment Not on file documented as of this encounter Procedures Procedure Name Priority Date/Time Associated Diagnosis Comments POCT INFLUENZA A/B + COVID-19 ANTIGEN - SHASHA 2 ANALYZER Routine 06/16/2023 5:12 PM EDT Acute cough documented in this encounter Results * (ABNORMAL) POCT Influenza A/B + COVID-19 Antigen - Shasha 2 Analyzer - Quidel ([id number]) (06/16/2023 5:12 PM EDT) POCT Shasha Influenza A Positive(A) Negative POCT Shasha Influenza B Negative Negative POC Shasha Covid-19 Antigen Negative Negative POCT Influenza A/B + COVID-19 Antigen IQC Yes, verified internal control performed correctly. Lot Number [id number] Expiration Date Swab (Nose) 06/16/2023 5:12 PM EDT Lily Kolb NP POINT OF CARE TEST ORDERABLES Final Result documented in this encounter Visit Diagnoses Diagnosis Influenza A- Primary Influenza with other respiratory manifestations Acute cough Elevated blood pressure reading in office without diagnosis of hypertension documented in this encounter Care Teams Jacker Relationship Specialty Start Date End Date Provider, FRANCIA Leigh [id number] PCP - General Senior Care Assistant 07/18/21 documented as of this encounter
--- OUTSIDE RECORDS SUMMARY | 2024-02-07 11:22 | XMS_ITS | Encounter Summary ---
Author Organization [facility] Address [address] [place], [place] [id number] Phone [email or web address] Care Team Providers Care Starch Factory Laborer Name Role Phone Provider, No Primary Care Provider Unavailabl e Reason for Visit * Reason Onset Date Comments Lab Result Follow up 10/24/2021 Datp 10/24/21 x 1 Encounter Details Date Type Department Care Team (Late st Contact Info) Description 10/24/[address] [place] [address] Lily Kolb NP [address] [place] [address] Social History Tobacco Use Types [...] Encounter - Lily Kolb NP - 10/24/2021 11:36 AM EDT Telephone visit to provide test result from onsite covid testing. Prior to providing result pt nameand confirmed. Willie Mack Terrazas 1970 Work day ID: [id number] Shift: 2 [facility] [phone] Last day worked: 10/21/21 Willie Mack Terrazas notified of NEGATIVE SARS-CoV-2 RT-PCR performed on 10/23/21 Reason for testing? Symptoms onset: 10/20/21 Afebrile x 24 hours without medication assistance? Yes Any new symptom onset after testing? No If tested for symptoms, current symptom status: show no change Contact with presumed or confirmed covid positive individuals? No Received covid vaccine? No Tested positive for covid in the past? Yes, describe: three times, most recently 03/2021 Reports positive home test 10/21/21. Negative PCR, no fever, no new symptoms, no positive contacts, symptoms ongoing for 5 days at this point. Due to reported home positive on 10/21/21 to provide reassurance to patient, will have pt complete DATP (daily antigen testing program) onsite program x 1 today prior to shift, if negative he will return to work today. Verbalized understanding. If feels unable to work, will need to see PCP/UTC and contact HR. documented in this encounter Plan of Treatment Not on file documented as of this encounter Visit Diagnoses Not on filedocumented in this encounter Care Teams Starch Factory Laborer Relationship Specialty Start Date End Date Provider, FRANCIA Leigh [id number] PCP - General Mixer Pigment 07/18/21 documented as of this encounter
--- OUTSIDE RECORDS SUMMARY | 2024-02-07 11:22 | XMS_ITS | Clinical Summary ---
Author Organization [facility] , [facility] Address [address] [place] [address] Phone Care Team Providers Care Travel Coordinator Name Role Phone Arnaud RODRÍGUEZ, Branden Unavailable [phone] Edgar RODRÍGUEZ, Aramis Sarah Unavailable [phone] Reason for Visit and Chief Complaint The Chief Complaint is: low back pain Problems Includes: Problems addressed during this encounter and other active Problems Current Visit Onset Date Resolved Date Provider Laura ramos Status Lower Back Pain 05/10/2023 Aramis Hernández MD Act heather Last Documented On 4 1:17PM ; [facility] Plan of Treatment Instructions to patient Lose weight Last Documented On 4 1:21PM ; [facility] Assessments Includes: Assessments from this encounter Findings - Overweight - Last Documented On 05/18/2023 4:53PM ; [facility] He brings in lumbar MRI from November 2022. He is disc bulging worse at L3 L4 and L4-L5. No significant canal stenosis. No subluxation or fracture - Last Documented On 05/18/2023 4:53PM ; [facility] Assessment: Chronic low back pain, lumbar facet arthropathy - Last Documented On 05/18/2023 4:53PM ; [facility] Plan: Dr. Hernández had discussions. No role [...] we can see him back as needed - Last Documented On 05/18/2023 4:53PM ; [facility] Patient was seen by Dr. Hernández and myself. - Last Documented On 05/18/2023 4:53PM ; [facility] Electronically signed Maurice Abarca PA-C - Last Documented On 05/18/2023 4:53PM ; [facility] Instructions Includes: Instructions from this encounter Instructions to patient Lose weight Last Documented On 4 1:21PM ; [facility] Medical Equipment - Implanted Devices Includes: Current Devices No Medical Equipment Recorded Medications Includes: Medications discussed during this encounter and other current Medications New / Renewed during this visit Aramis Hernández MD on 05/10/2023 Gabapentin 300 MG Oral Capsule Provider: Aramis Hernández MD 30 day supply: 90 capsule, 1 refills Diagnosis: three times a day Pharmacy: [facility] [address] [facility], [id number] - Last Documented On 2:08PM By Aramis Hernández ; [facility] Current Medications (continue as prescribed) Gabapentin 300 MG Oral Capsule 05/03/2023 Provider: Diagnosis: Last Documented On 4 1:17PM By Jeniffer Luna ; [facility] Diclofenac Sodium 75 MG Oral Tablet Delayed Release 03/12/2023 Provider: Betito Sood Diagnosis: Last Documented On 4 1:17PM By Jeniffer Luna ; [facility], [facility] Medications Administered Includes: Administered Medications from this encounter No Administered Medications Recorded Vital Signs Includes: Vital Signs from this encounter Vital Name 05/10/2023 12:58P Height (in) 73 Weight (lb) 230 Body Mass Index 30.3 Body Surface Area 2.3 Pain Level 3 Note: mbb Last Documented: On 05/10/2023 12:58P M ; [facility] Results Includes: Results discussed during this encounter No Results Recorded For Specified Dates History of Present Illness Includes: History of Present Illness from this encounter DALLIN Giron is a 53 year old male. 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 Currently takes gabapentin p.r.n. and diclofenac twice a day. Said he is switching care because he does not like the organization in his other office. Said he would just like to be able to get nerve oliva occasionally when he needs it. He denies any weakness or numbness in his legs. Social History Description Last Updated Tobacco non-user 05/10/2023 Last Documented On 4 4:53PM ; [facility], [facility] Exercising regularly 05/10/2023 Last Documented On 4 4:53PM ; [facility], [facility] No caffeine use 05/10/2023 Last Documented On 4 4:53PM ; [facility] No recent change in diet 05/10/2023 Last Documented On 4 4:53PM ; [facility], [facility] Not a current smoker. 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 Last Documented On 4 4:53PM ; [facility], [facility] Smoking Status Unknown Procedures and Surgical History Includes: Procedures from this encounter Procedures Code Diagnosis Performing Provider Service L ocation Service Date use of tobacco assessment performed 1000F Last Documented On 4 1:21PM ; [facility], [facility] review of medications documented 1160F Last Documented On 4 1:21PM ; [facility], [facility] an X-ray was performed [id number] Last Documented On 4 1:20PM ; [facility] an MRI was performed L-spine MRI 12/04/22 @ [facility] [id number] Last Documented On 4 1:20PM ; [facility] brace Last Documented On 4 1:20PM ; [facility] Surgical History Last Updated History of hernia repair 05/10/2023 Last Documented On 4 4:53PM ; [facility] Medical History Includes: Medical History addressed during this encounter Description Last Updated History of Sleep Apnea 05/10/2023 Last Documented On 4 4:53PM ; [facility] Use of CPAP 05/10/2023 Last Documented On 4 4:53PM ; [facility], [facility] Family History Includes: Family History addressed during this encounter Description Last Updated No significant family history 05/10/2023 Last Documented On 4 4:53PM ; [facility] Review of Systems Includes: Review of Systems from this encounter Systemic: Not feeling tired and no recent [...] Immunologic: No complaint of seasonal allergic reaction. Mental Status Includes: Mental Status from this encounter Description No anxiety Functional Status Includes: Functional Status from this encounter No Functional Status Recorded Physical Exam Includes: Physical Exam from this encounter Allergies Includes: Active Allergies Substance Type Reaction Onset Date Resolved Date Statu s Codeine Allergy Skin Rashes / Er uption of skin, Hives / Urticaria 05/10/2023 Active Last Documented On 4 1:18PM ; [facility], [facility] Encounters Encounter Provider Location Date Check-In Time Check-Out Time Diagnosis Physician Specified Aramis Hernández MD [facility] 05/10/19 24 12:40PM 1:29PM Overweight Insurance Includes: Active Insurance Policies Plan Name Member ID Group # Subscriber Relationship Effect heather Dates 1 - 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 Habits: Exercising regularly. 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 Allergies - Codeine Reaction: Hives / Urticaria, [...] MRI was performed L-spine MRI 12/04/22 @ [facility]. Basic Management Procedures And Services: - Brace [...]
--- OUTSIDE RECORDS SUMMARY | 2024-02-07 11:22 | XMS_ITS | Encounter Summary ---
Author Organization [facility] Address [address] [place] [phone] Phone [email or web address] Care Team Providers Care Aerophysics Engineer Name Role Phone Provider, No Primary Care Provider Unavailabl e Reason for Visit * Reason Comments Blurred Distance Vision OP Blur has impr mina over the past month. He reports less light-sensitivity. Left eyelid has felt better and less puffy. Encounter Details Date Type Department Care Team (Late st Contact Info) Description 10/01/2022 3:30 PM EDT Office Visit [facility] [address] [place] [address] Ishaan Grubbs, OD [address] [place] [address] Chalazion of left upper eyelid (Primary Dx) Social History Tobacco Use Types [...] Progress Notes * Ishaan Grubbs, OD - 10/01/2022 3:30 PM EDT Subjective: Willie Giron Jr is a 52 y.o. male. Chief Complaint Blurred Distance Vision OP HPI Blurred Distance Vision OP Additional comments: Blur has improved over the past month. He reports less light-sensitivity. Lefteyelid has felt better and less puffy. Last edited by Ishaan Grubbs, OD on 10/01/2022 7:38 PM. 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 Visual Acuity Visual Acuity (Snellen - Linear) Right Left Dist cc 20/30 20/30 -2 Pupils Pupils Pupils Dark Light APD Right PERRL 6 3 None Left PERRL 6 3 None Extraocular Movement Extraocular Movement Right Left Full, Ortho Full, Ortho Confrontational Visual Quinonez Visual Quinonez Left Right Full Full Tonometry Tonometry (Non-contact air puff, 3:45 PM) Right Left Pressure 21 21 Wearing Rx Wearing Rx Sphere Cylinder Wildorado Add Right +1.25 -0.75 043 +2.00 Left +1.75 -1.00 110 +2.00 Type: PAL Wearing Rx #2 Sphere Cylinder [place] Add Right +1.00 -0.75 035 Left +1.75 -1.25 129 Type: autorefraction Keratometry Keratometry (Automated) K1 Wildorado K2 Wildorado Mires Right 40.25 179 43.00 089 Normal Left 40.75 170 42.50 080 Normal Manifest Refraction Manifest Refraction Sphere Cylinder [place] Dist VA Add Right +1.00 -0.75 038 20/25 +2.00 Left +1.75 -1.00 110 20/25 +2.00 Eyeglass Final Rx Eyeglass Final Rx Sphere Cylinder [place] Dist VA Add Right +1.00 -0.75 038 20/25 +2.00 Left +1.75 -1.00 110 20/25 +2.00 Type: PAL Expiration Date: 10/02/2023 Main Ophthalmology Exam External Exam Right Left External Normal Normal Slit Lamp Exam Right Left Lids/Lashes Normal one chalazion superior lid Conjunctiva/Sclera White and quiet White and quiet Cornea Clear Clear Anterior Chamber Deep and quiet Deep and quiet Iris Round and reactive Round and reactive Lens Clear Clear Vitreous Normal Normal Fundus Exam Right Left Disc Normal Normal C/D Ratio 0.2 0.2 Macula Mottling- trace (close to ONH) scar - temporal to optic nerve Vessels Normal Normal Periphery C/R lesion from Histo C/R lesions from Histo <div id= MAIN_EXAM_REVIEWED ></div> Willie was seen today for blurred distance vision op. Diagnoses and all orders for this visit: Chalazion of left upper eyelid (Primary) - discussed treatment options with patient - recommend no treatment at this time Histoplasmosis scars OU - continue to monitor with Amsler grid at home (patient) - RTC if notice any changes to grid or vision - recently was evaluated by retinal specialist at [facility] - stable appearance RTC 3 months Ishaan Grubbs OD documented in this encounter Plan of Treatment Not on file documented as of this encounter Visit Diagnoses Diagnosis Chalazion of left upper eyelid- Primary documented in this encounter Care Teams Aerophysics Engineer Relationship Specialty Start Date End Date Provider, FRANCIA Leigh [address] PCP - General Toy Assembler 07/18/21 documented as of this encounter
--- OUTSIDE RECORDS SUMMARY | 2024-02-07 11:22 | XMS_ITS | Encounter Summary ---
Author Organization [facility] Address [address] [place] [address] Phone [email or web address] Care Team Providers Care Rake Operator Name Role Phone Provider, No Primary Care Provider Unavailabl e Reason for Visit * Reason Comments Blurred Distance Vision OP Personal eye exam. His bifocal work glasses have started to become blurry at distance. He tilts his head back to see better and get close to his bifocal part in the lens. He uses some computer glasses as well and loves those. 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 Encounter Details Date Type Department Care Team (Late st Contact Info) Description 06/16/2022 2:30 PM EDT Office Visit [facility] [address] [place] [address] Viborg Ishaan, OD [address] [place] [address] Hyperopia, bilateral (Primary Dx) Social History Tobacco Use Types [...] Progress Notes * Ishaan Grubbs, OD - 06/16/2022 2:30 PM EDT Subjective: Willie Giron Jr is a 52 y.o. male. Chief Complaint Blurred Distance Vision OP HPI Blurred Distance Vision OP Additional comments: Personal eye exam. His bifocal work glasses have started to become blurry at distance. He tilts his head back to see better and get close to his bifocal part in the lens. He usessome computer glasses as well and loves those. 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 Last edited by Ishaan Grubbs, OD on 06/16/2022 5:12 PM. ROS Negative for: Constitutional, Gastrointestinal, Neurological, Skin, Genitourinary, Musculoskeletal,HENT, Endocrine, Cardiovascular, Eyes, Respiratory, Psychiatric, Allergic/Imm, Heme/Lymph Last edited by Ishaan Grubbs, OD on 06/16/2022 2:39 PM. Visual Acuity Visual Acuity (Snellen - Linear) Right Left Dist sc 20/50 20/50 Dist cc 20/30 20/30 Correction: Glasses Pupils Pupils Pupils Dark Light APD Right PERRL 6 3 None Left PERRL 6 3 None Extraocular Movement Extraocular Movement Right Left Full, Ortho Full, Ortho Confrontational Visual Quinonez Visual Quinonez Left Right Full Full Tonometry Tonometry (Non-contact air puff, 3:17 PM) Right Left Pressure 15 17 Color Color Right Left Ishihara 01/30 01/30 Wearing Rx Wearing Rx Sphere Cylinder Lynn Add Right +1.50 -1.75 045 +1.75 Left +1.25 -1.00 103 +1.75 Type: Bifocal Wearing Rx #2 Sphere Cylinder Lynn Add Right +3.00 -1.75 045 Left +2.75 -1.00 103 Type: SVL Wearing Rx #3 Sphere Cylinder Lynn Add Right +1.50 -1.75 045 Left +1.25 -1.00 103 Type: SVL Keratometry Keratometry (Automated) K1 Lynn K2 Lynn Mires Right 40.25 179 42.25 089 Normal Left 40.75 170 42.75 080 Normal Manifest Refraction Manifest Refraction Sphere Cylinder Lynn Dist VA Add Right +1.25 -0.75 043 20/20- +2.00 Left +1.75 -1.00 110 20/20- +2.00 Eyeglass Final Rx Eyeglass Final Rx Sphere Cylinder Lynn Dist VA Add Right +1.25 -0.75 043 20/20- +2.00 Left +1.75 -1.00 110 20/20- +2.00 Type: Bifocal Expiration Date: 06/17/2023 Comments: 63 mm = distance PD Eyeglass Final Rx #2 Sphere Cylinder Lynn Dist VA Add Right +3.25 -0.75 043 Left +3.75 -1.00 110 Type: SVL Expiration Date: 06/17/2023 Comments: Near glasses (wiring at work) Eyeglass Final Rx #3 Sphere Cylinder Lynn Dist VA Add Right +2.50 -0.75 043 Left +3.00 -1.00 110 Type: SVL Expiration Date: 06/17/2023 Comments: Computer distance Main Ophthalmology Exam External Exam Right Left External Normal Normal Slit Lamp Exam Right Left Lids/Lashes Normal Normal Conjunctiva/Sclera White and quiet White and quiet Cornea Clear Clear Anterior Chamber Deep and quiet Deep and quiet Iris Round and reactive Round and reactive Lens Clear Clear Vitreous Normal Normal Fundus Exam Right Left Disc Normal large scar temporal side of ONH C/D Ratio 0.3 0.3 Macula Flat and Intact Flat and Intact Vessels Normal Normal Periphery histo c/r spots histo c/r spots <div id= MAIN_EXAM_REVIEWED ></div> Willie was seen today for blurred distance vision op. 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
--- OUTSIDE RECORDS SUMMARY | 2024-02-07 11:22 | XMS_ITS | Encounter Summary ---
Author Organization [facility] Address [address] [place] [address] Phone [email or web address] Care Team Providers Care Curer Acid Drum Name Role Phone Provider, No Primary Care Provider Unavailabl e Reason for Visit * Reason Comments Follow up Musculoskeletal Issue Encounter Details Date Type Department Care Team (Late st Contact Info) Description 04/07/2022 2:00 PM EST Office Visit [facility] [address] [facility] [address] [place] [address] Radha Booker PA [address] [place] [address] Return to work evaluation (Primary Dx); Midline low back pain without sciatica, unspecified chronicity Social History Tobacco Use Types Packs/Day Years [...] Sign Reading Time Taken Comments Blood Pressure 132/79 04/07/2022 1:49 PM EST Pulse 48 04/07/2022 1:49 PM EST Temperature 36 ??C (96.8 ??F) 04/07/2022 1:49 PM EST Respiratory Rate 18 04/07/2022 1:49 PM EST Oxygen Saturation 98% 04/07/2022 1:49 PM EST Inhaled Oxygen Concentration - - Weight - - Height - - Body Mass Index - - documented in this encounter Patient Instructions * Patient Instructions* RYLEE Gunter - 04/07/2022 2:00 PM EST - Duty status: reintroduction to regular duty 04/07/22 - Management: continue care per specialist - Referrals: no new referrals - Follow up: as needed - Call [facility] @ [phone] for any questions/concerns/appointments. WIRE BUILDER documented in this encounter Progress Notes * RYLEE Gunter - 04/07/2022 2:00 PM EST Subjective Willie Giron Jr is a 52 y.o. male who presents for personal return to work. 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 Full-time GL and Ext:??Maxi (Unknown last name) Case #:??[id number] Body Part/ Side:??lower back Date of Injury:??12/16/21? CLAIM DENIED LDW: 01/08/22 RELEASE: 04/07/22 PMLOA. TM reports that he had an occ claim that was denied. TM reports that he had injured his backand on 04/10/21, he slipped and the next day he was unable to come to work the next day due to pain.TM reports that he was under the care of his PCP, Dr. Orantes. TM reports that he had a procedure done where they stick three needles in my back and electrocute those needles, destroying the nerves that are related to the pain. TM reports that he had pain medication while off. TM reports that he feeling much better. Follow up PRN. TM reports that he feels ready to RTW, release note in hand. Deniesany other concerns at this time. Triage nurse: Debbie Last RN BSN HPI See triage notes above. Off work nearly 3 months for low back pain/rhizotomy x 2. First on left side in December, then long approval process for right side, finally performed on 03/19/22. States his back feels much better now. Release to full duty by Dr. Orantes. 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 Declines work cond itioning/hardening. 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 Asks about writing something out for him to be able to take a few minutes and put on his back brace if he gets called to do heavy lifting, so he doesn't get in trouble. Advised he talk with HR about accommodations as we cannot write those here. States he will probably just keep his back brace with him in his tool kit to avoid any problems with assembly department supervisor. - Delia Booker PA-C History Reviewed: Tobacco Allergies Meds Problems Med Hx Surg Hx Fam Hx Objective Visit Vitals BP 132/79 Pulse (!) 48 Temp 96.8 ??F Resp 18 SpO2 98% Smoking Status Never Review of Systems PHQ-9 Total Score: 0 (04/07/2022 1:51 PM) Physical Exam Vitals and nursing note reviewed. Constitutional: Appearance: He is well-developed. Pulmonary: Effort: Pulmonary effort is normal. Skin: General: Skin is warm and dry. Neurological: Mental Status: He is alert and oriented to person, place, and time. Low Back: Did not disrobe. Nontender to palp. Full ROM without pain. Normal heel/toe lift bilat. Assessment: ICD-10-CM ICD-9-CM 1. Return to work evaluation Z76.89 V72.85 2. Midline low back pain without sciatica, unspecified chronicity M54.50 724.2 No orders of the defined types were placed in this encounter. Patient Instructions - Duty status: reintroduction to regular duty 04/07/22 - Management: continue care per specialist - Referrals: no new referrals - Follow up: as needed - Call [facility] @ [phone] for any questions/concerns/appointments. WIRE BUILDER documented in this encounter Plan of Treatment Not on file documented as of this encounter Visit Diagnoses Diagnosis Return to work evaluation- Primary Other specified examination Midline low back pain without sciatica, unspecified chronicity documented in this encounter Care Teams Curer Acid Drum Relationship Specialty Start Date End Date Provider, FRANCIA Leigh [id number] PCP - General Distribution Center Associate 07/18/21 documented as of this encounter
--- OUTSIDE RECORDS SUMMARY | 2024-02-07 11:23 | XMS_ITS | Encounter Summary ---
Author Organization [facility] Address [address] [place] [address] Phone [email or web address] Care Team Providers Care Agriculture Mechanic Name Role Phone Unavailable Primary Care Provider Unavailabl e Encounter Details Date Type Department Care Team (Late st Contact Info) Description 11/08/2020 Telephone [facility] [address] [place] [address] Alma Cortez PA [address] [place] [address] Social History Tobacco Use Types Packs/Day Years Used Date Smoking Tobacco: Never Smokeless Tobacco: Never Alcohol Use Standard Drinks/Week Comments Never 0 (1 standard drink = 0.6 oz pur e alcohol) Sex and Gender Information Value Date Recorded Sex Assigned at Not on file Legal Sex Male 7:14 AM CDT Gender Identity Not on file Sexual Orientation Not on file documented as of this encounter Miscellaneous Notes * Telephone Encounter - RYLEE Yarbrough - 11/08/2020 6:09 PM EDT Tried calling TM with negative x-ray results. No answer. Left message that [facility] documented in this encounter Plan of Treatment Not on file documented as of this encounter Visit Diagnoses Not on filedocumented in this encounter
--- OUTSIDE RECORDS SUMMARY | 2024-02-07 11:23 | XMS_ITS | Clinical Summary ---
Author Organization [facility] Address [address] [place] [address] Care Team Providers Care Stove Mechanic Name Role Phone Branden Lares MD Primary Care Provider [phone] Allergies Active Allergy Reactions Criticality Noted Date Comments Codeine 07/04/2018 Tylenol 3 Medications glucosamine-cho ndroitin 500-400 mg tablet Take 1 tablet by mouth. Active multivitamin (multivitamin) per tablet Take 1 tablet by mouth. Active gabapentin (NEURONTIN) 300 MG capsule Gabapentin 300 MG Oral Capsule, conventional QTY: 90 Days: 30 Refills: 0 Written: 05/03/23 Patient Instructions: 4 Active diclofenac (VOLTAREN) 75 MG EC tablet Diclofenac Sodium 75 MG Oral Tablet, enteric coated QTY: 60 Days: 30 Refills: 0 Written: 03/12/23 Patient Instructions: 3 Active Active Problems Problem Noted Date Diagnosed Date Encounter for general adult medical examination without abnormal findings 05/26/2022 Acute cough 05/26/2022 COVID-19 05/26/2022 Other follow-up examination 10/26/2013 Overview (05/26/2022): Lateral epicondylitis of elbow 01/13/2011 Overview (03/07/2022): Return to work evaluation 02/12/2010 Overview (05/26/2022): Hypermetropia 10/22/2009 Overview (03/07/2022): Presbyopia 10/22/2009 Overview (03/07/2022): 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 07/17/2009 Overview (03/07/2022): DDD (degenerative disc disease), cervical 2008 Overview (03/07/2022): Neck pain 10/08/2008 Overview (03/07/2022): Low back pain 08/23/2007 Overview (05/26/2022): Encounter for hearing examin ation following failed hearing screening 03/03/2007 Overview (05/26/2022): Other examination of ears and hearing 03/03/2007 Overview (05/26/2022): Encounters Date Type Department Care Team Description 11/17/2023 11:15 AM EDT Office Visit [facility] [address] [address] Branden Lares MD Chronic bilateral low back pain without sciatica (Primary Dx); Class 3 severe obesity due to excess calories without serious comorbidity with body mass index (BMI) of 40.0 to 44.9 in adult (HCC); Prediabetes; Primary hypertension from Last 3 Months Social History Tobacco Use Types Packs/Day Years Used Date Smoking Tobacco: Never Smokeless Tobacco: Never Tobacco Cessation:Counseling Given: Not Answered Interpersonal Safety Answer Date Record ed Family or friends hurt you Not on file 04/09 Family or friends insult you Not on file Family or friends threaten you Not on file 0 04/09/2023 Family or friends scream or curse at you Not on file 04/09/2023 Housing Stability Answer Date Recorded Living situation today Not on file Living situation problems Not on file 2023 Food Insecurity Answer Date Recorded Food run out past 12 months Not on file 03/22 Food did not last past 12 months Not on file 04/09/2023 Employment Answer Date Recorded Help finding and keeping a job Not on file 0 04/09/2023 Family and Community Support Answer Kaz e Recorded Help with Day to Day Activities Not on file 04/09/2023 Feeling Lonely or Isolated Not on file 04/09 Educational Attainment Answer Date Efrain rded Speak language other than Persian at home Not on file 04/09/2023 Want help with school or training Not on file 04/09/2023 Depression Answer Date Recorded PHQ-2 Risk Not on file 04/09/2023 Disabilities Answer Date Recorded Difficulty concentrating Not on file 024 Difficulty doing errands alone Not on file 0 04/09/2023 Substance Use Answer Date Recorded Used prescription meds for non-medical reasons N ot on file 04/09/2023 Used illegal drugs past 12 months Not on file 04/09/2023 Sex and Gender Information Value Date Recorded Sex Assigned at Not on file Legal Sex Male 5:48 PM CDT Gender Identity Not on file Sexual Orientation Not on file Last Filed Vital Signs Vital Sign Reading Time Taken Comments Blood Pressure 155/90 11/17/2023 11:30 AM EDT Pulse 45 11/17/2023 11:08 AM EDT Temperature 37.9 ??C (100.2 ??F) 10/07/2023 3:50 PM E DT Respiratory Rate - - Oxygen Saturation 98% 11/17/2023 11:08 AM EDT Inhaled Oxygen Concentration - - Weight 153.8 kg (339 lb) 11/17/2023 11:08 AM EDT Height 185.4 cm (6' 1 ) 11/17/2023 11:08 AM EDT Body Mass Index 44.73 11/17/2023 11:08 AM EDT Plan of Treatment Health Maintenance Due Date Last Done Comments CT Colonography 1970 Colonoscopy 1970 Colorectal Cancer Screening 1970 FOBT/FIT 1970 Fit-DNA (Cologuard) 1970 Sigmoidoscopy 1970 Depression Screening (12+) 1982 HIV Screening 1985 Hepatitis C Screening 02/26/1988 DTAP/TDAP/TD VACCINES (1 - Tdap) 1989 Shingles Vaccine (Zoster) (1 of 2) 02/26/2020 COVID-19 VACCINE (1 - season) 2023 Influenza Vaccine (#1) 2023 Tobacco Cessation Counseling and Screening (12+) 11/1611/17/2023 Lipid Panel 10/06/2026 10/07/2023 Procedures Procedure Name Priority Date/Time Associated Diagnosis Comments LIPID PANEL Routine 10/07/2023 4:31 PM EDT Class 3 severe obesity due to excess calories without serious comorbidity with body mass index (BMI) of 40.0 to 44.9 in adult (HCC) from Last 3 Months or Most Recently Relevant to Health Maintenance Results * (ABNORMAL) Lipid panel (10/07/2023 4:31 PM EDT) Cholesterol, Total 170 100 - 199 mg/dL [facility] Triglycerides 193(H) 0 - 149 mg/dL [facility] HDL Cholesterol 33(L) >39 mg/dL [facility] VLDL Cholesterol Yeison 34 5 - 40 mg/dL [facility] LDL Calculated 103(H) 0 - 99 mg/dL [facility] Blood 10/07/2023 4:31 PM EDT 10/07/2023 Narrative [facility] - 10/08/2023 11:08 AM EDT Performed at: ??01 - [facility] [address], [place], [place] [id number] Mass Communications Instructor: Vinay Mustafa PhD, Phone: ??[phone] us Branden Lares MD LAB BLOOD ORDERABLES Final Resul t [facility] from Last 3 Months or Most Recently Relevant to Health Maintenance Insurance BLUE CROSS/BLUE SHIELD Care Teams Stove Mechanic Relationship Specialty Start Date End Date Branden Lares MD [address] [place] [address] PCP - General Internal Medicine/Pediatrics 01/08/22
--- OUTSIDE RECORDS SUMMARY | 2024-02-07 11:23 | XMS_ITS | Encounter Summary ---
Author Organization [facility] Address [address] [place] [address] Care Team Providers Care Bottom Man Name Role Phone Branden Lares MD Primary Care Provider [phone] Encounter Details Date Type Department Care Team (Late st Contact Info) Description 08/04/2022 Abstract [facility] Primary Care [facility] [address] [place] [address] Branden Lares MD [address] [place] [address] Social History Tobacco Use Types Packs/Day Years Used Date Smoking Tobacco: Never Smokeless Tobacco: Never Sex and Gender Information Value Date Recorded Sex Assigned at Not on file Legal Sex Male 5:48 PM CDT Gender Identity Not on file Sexual Orientation Not on file documented as of this encounter Plan of Treatment Not on file documented as of this encounter Visit Diagnoses Not on filedocumented in this encounter Care Teams Bottom Man Relationship Specialty Start Date End Date Branden Lares MD [address] [place] [address] PCP - General Internal Medicine/Pediatrics 01/08/22 documented as of this encounter
--- OUTSIDE RECORDS SUMMARY | 2024-02-07 11:23 | XMS_ITS | Encounter Summary ---
Author Organization [facility] Address [address] [place], [place] [id number] Phone [email or web address] Care Team Providers Care Dressmaker Or Tailor Name Role Phone Unavailable Primary Care Provider Unavailabl e Encounter Details Date Type Department Care Team (Late st Contact Info) Description 04/27/2018 Orders Only [facility] [address] [place] [address] Yocasta Salcedo, RN [address] [place] [address] Social History Tobacco Use Types Packs/Day Years Used Date Smoking Tobacco: Never Assessed Sex and Gender Information Value Date Recorded Sex Assigned at Not on file Legal Sex Male 7:14 AM CDT Gender Identity Not on file Sexual Orientation Not on file documented as of this encounter Plan of Treatment Not on file documented as of this encounter Visit Diagnoses Not on filedocumented in this encounter
--- OUTSIDE RECORDS SUMMARY | 2024-02-07 11:23 | XMS_ITS | Referral Summary ---
Author Organization [employer] Address [address] [place] [address] Care Team Providers Care Automatic Splicing Machine Operator Name Role Phone Branden Lares MD Primary Care Provider [phone] Encounters Date Type Department Care Team Description 11/17/2023 11:15 AM EDT Office Visit [facility] Primary Care [facility] [address] [place] [address] Branden Lares MD Chronic bilateral low back pain without sciatica (Primary Dx); Class 3 severe obesity due to excess calories without serious comorbidity with body mass index (BMI) of 40.0 to 44.9 in adult (HCC); Prediabetes; Primary hypertension from Last 3 Months Allergies Active Allergy Reactions Criticality Noted Date [...] of ears and hearing 03/03/2007 Overview (05/26/2022): Social History Tobacco Use Types Packs/Day Years [...] Date Efrain rded Speak language other than Citizen Of [place] at home Not on file 04/09/2023 Want [...] 11/17/2023 11:08 AM EDT Plan of Treatment Not on file Procedures Procedure Name Priority Date/Time Associated Diagnosis [...] AM EDT Performed at: ??01 - [facility] [address] ??[id number] Methods Engineer: Vinay Mustafa PhD, Phone: ??[phone] us Branden Lares MD LAB BLOOD ORDERABLES Final Resul t [facility] from Last 3 Months or Most Recently Relevant to Health Maintenance Insurance BLUE CROSS/BLUE SHIELD Care Teams Automatic Splicing Machine Operator Relationship Specialty Start Date End Date Branden Lares MD [address] [place] [address] PCP - General Internal Medicine/Pediatrics 01/08/22
--- OUTSIDE RECORDS SUMMARY | 2024-02-07 11:23 | XMS_ITS | Encounter Summary ---
Author Organization [facility] Address [address] [place] [address] Care Team Providers Care Bag Shaker Name Role Phone Branden Lares MD Primary Care Provider [phone] Reason for Visit * Reason Comments Follow-up ON HIS BACK-LOWER Encounter Details Date Type Department Care Team (Late st Contact Info) Description 10/07/2023 4:15 PM EDT Office Visit [facility] Primary Care [facility] [address] [place] [address] Branden Lares MD [address] [place] [address] Chronic bilateral low back pain without sciatica (Primary Dx); Class 3 severe obesity due to excess calories without serious comorbidity with body mass index (BMI) of 40.0 to 44.9 in adult (HCC); Swelling of lower extremity Social History Tobacco Use Types Packs/Day Years Used Date Smoking Tobacco: Never Smokeless Tobacco: Never Interpersonal Safety Answer Date Record ed Family [...] Date Efrain rded Speak language other than Singaporean at home Not on file 04/09/2023 Want [...] Sign Reading Time Taken Comments Blood Pressure 144/80 10/07/2023 3:50 PM EDT Pulse 60 10/07/2023 3:50 PM EDT Temperature 37.9 ??C (100.2 ??F) 10/07/2023 3:50 PM E DT Respiratory Rate - - Oxygen Saturation 96% 10/07/2023 3:50 PM EDT Inhaled Oxygen Concentration - - Weight 158.8 kg (350 lb) 10/07/2023 3:50 PM EDT Height 185.4 cm (6' 1 ) 10/07/2023 3:50 PM EDT Body Mass Index 46.18 10/07/2023 3:50 PM EDT documented in this encounter Progress Notes * Branden Lares MD - 10/07/2023 4:15 PM EDT Subjective: Willie Giron is a 53 y.o. male. Chief Complaint Patient presents with ??? Follow-up ON HIS BACK-LOWER I have reviewed and/or updated the following: Tobacco Allergies Meds Problems Med Hx Surg Hx Fam Hx Patient here for evaluation of back pain, obesity, and lower extremity swelling. Review of Systems All other systems reviewed and are negative. Objective: BP (!) 144/80 Pulse 60 Temp 100.2 ??F (37.9 ??C) Ht 1.854 m (6' 1 ) Wt (!) 158.8 kg (350 lb) SpO2 96% BMI 46.18 kg/m?? Physical Exam Constitutional: Appearance: Normal appearance. He is obese. HENT: Head: Normocephalic and atraumatic. Right Ear: External ear normal. Left Ear: External ear normal. Pulmonary: Effort: Pulmonary effort is normal. Neurological: General: No focal deficit present. Mental Status: He is alert. Mental status is at baseline. Psychiatric: Mood and Affect: Mood normal. Behavior: Behavior normal. Thought Content: Thought content normal. Judgment: Judgment normal. Assessment: 1. Chronic bilateral low back pain without sciatica 2. Class 3 severe obesity due to excess calories without serious comorbidity with body mass index (BMI) of 40.0 to 44.9 in adult ([facility]) 3. Swelling of lower extremity Plan: Diagnoses and all orders for this visit: Chronic bilateral low back pain without sciatica - patient working with a pain clinic to have some possible procedures to help with this. He is alsobeen working on weight loss recently which I think can greatly help with this. Class 3 severe obesity due to excess calories without serious comorbidity with body mass index (BMI) of 40.0 to 44.9 in adult ([facility]) - complicates care. Has been working on diet and exercise as well which I encouraged. I offered to star the patient on wegovy or zepbound but he would like to work on diet and exercise a a bit more before doing this. If he is not successful in three months, will start zepbound or wegovy PLAN - CBC with platelet count + automated diff; Future - Comprehensive metabolic panel; Future - Hemoglobin A1c; Future - Lipid panel; Future - TSH W/REFLEX TO FT4; Future - PROBNP Swelling of lower extremity - patient with non painful swelling in the bilateral lower extremities most days after he is on hisfeet for long amounts of time. Generally gets better after being recumbent. Likely due to venous insufficiency. Also considered heart failure. Will get bnp and encouraged use of compression stockings PLAN - probnp ordered No follow-ups on file. documented in this encounter Miscellaneous Notes * Result Encounter Note - Juliette Shabazz CMA - 10/07/2023 4:15 PM EDT Patient informed of results during clinic encounter/telephone encounter. documented in this encounter Plan of Treatment Not on file documented as of this encounter Procedures Procedure Name Priority Date/Time Associated Diagnosis Comments TSH W/REFLEX TO FT4 Routine 10/07/2023 4 :31 PM EDT Class 3 severe obesity due to excess calories without serious comorbidity with body mass index (BMI) of 40.0 to 44.9 in adult (HCC) CBC W/PLT COUNT & AUTO DIFFERENTIAL Routine 10/07/2023 4:31 PM EDT Class 3 severe obesity due to excess calories without serious comorbidity with body mass index (BMI) of 40.0 to 44.9 in adult (HCC) HEMOGLOBIN A1C Routine 10/07/2023 4:31 PM EDT Class 3 severe obesity due to excess calories without serious comorbidity with body mass index (BMI) of 40.0 to 44.9 in adult (HCC) LIPID PANEL Routine 10/07/2023 4:31 PM EDT Class 3 severe obesity due to excess calories without serious comorbidity with body mass index (BMI) of 40.0 to 44.9 in adult (HCC) COMPREHENSIVE METABOLIC PANEL Routine 10/07/2023 4:31 PM EDT Class 3 severe obesity due to excess calories without serious comorbidity with body mass index (BMI) of 40.0 to 44.9 in adult (HCC) documented in this encounter Results * TSH W/REFLEX TO FT4 (10/07/2023 4:31 PM EDT) TSH 4.010 0.450 - 4.500 uIU/mL [facility] 10/07/2023 4:31 PM EDT 10/07/2023 Narrative [facility] - 10/08/2023 11:08 AM EDT Performed at: ??01 - [facility] [address] ??[id number] Senior Process Analyst: Vinay Mustafa PhD, Phone: ??[phone] Branden Lares MD LAB BLOOD ORDERABLES Final Resul t Performing Organization Address [facility] de Phone Number [facility] * (ABNORMAL) Lipid panel (10/07/2023 4:31 PM [...] AM EDT Performed at: ??01 - [facility] [address] ??[id number] Senior Process Analyst: Vinay Mustafa PhD, Phone: ??[phone] Branden Lares MD LAB BLOOD ORDERABLES Final Resul t Performing Organization Address [facility] de Phone Number [facility] * (ABNORMAL) Hemoglobin A1c (10/07/2023 4:31 PM EDT) Hemoglobin A1c 5.8(H) 4.8 - 5.6 % [facility] Comment: ? Prediabetes: 5.7 - 6.4 ? Diabetes: >6.4 ? Glycemic control for adults with diabetes: <7.0 Blood 10/07/2023 4:31 PM EDT 10/07/2023 Narrative [facility] - 10/08/2023 11:08 AM EDT Performed at: ??01 - [facility] [address] ??[id number] Senior Process Analyst: Vinay Mustafa PhD, Phone: ??[phone] Branden Lares MD LAB BLOOD ORDERABLES Final Resul t Performing Organization Address [facility] Co de Phone Number [facility] * Comprehensive metabolic panel (10/07/2023 4:31 PM EDT) Glucose, Serum 85 70 - 99 mg/dL [facility] BUN 19 6 - 24 mg/dL [facility] Creatinine, Serum 1.21 0.76 - 1.27 mg/dL [facility] EGFR 72 >59 mL/min/1.73 [facility] BUN/Creatinine Ratio 16 9 - 20 [facility] Sodium, Serum 144 134 - 144 mmol/L [facility] Potassium, Serum 4.4 3.5 - 5.2 mmol/L [facility] Chloride, Serum 106 96 - 106 mmol/L [facility] Carbon Dioxide, Total 24 20 - 29 mmol/L [facility] Calcium, Serum 9.4 8.7 - 10.2 mg/dL [facility] Protein, Total, Serum 7.0 6.0 - 8.5 g/dL [facility] Albumin, Serum 4.5 3.8 - 4.9 g/dL [facility] Globulin, Total 2.5 1.5 - 4.5 g/dL [facility] Bilirubin, Total 0.5 0.0 - 1.2 mg/dL [facility] Alkaline Phosphatase, S 56 44 - 121 IU/L [facility] AST (SGOT) 19 0 - 40 IU/L [facility] ALT (SGPT) 28 0 - 44 IU/L [facility] Blood 10/07/2023 4:31 PM EDT 10/07/2023 Narrative [facility] - 10/08/2023 11:08 AM EDT Performed at: ??01 - [facility] [address] ??[id number] Senior Process Analyst: Vinay Mustafa PhD, Phone: ??[phone] Branden Lares MD LAB BLOOD ORDERABLES Final Resul t Performing Organization Address [facility]/ZIP Co de Phone Number [facility] * (ABNORMAL) CBC with platelet count + automated diff (10/07/2023 4:31 PM EDT) WBC 9.1 3.4 - 10.8 x10E3/uL [facility] RBC 5.18 4.14 - 5.80 x10E6/uL [facility] Hemoglobin 15.1 13.0 - 17.7 g/dL [facility] Hematocrit 45.8 37.5 - 51.0 % [facility] MCV 88 79 - 97 fL [facility] MCH 29.2 26.6 - 33.0 pg [facility] MCHC 33.0 31.5 - 35.7 g/dL [facility] RDW 13.0 11.6 - 15.4 % [facility] Platelets 271 150 - 450 x10E3/uL [facility] % Neutros 53 Not Estab. % [facility] % Lymphs 35 Not Estab. % [facility] % Monos 8 Not Estab. % [facility] % Eos 3 Not Estab. % [facility] % Baso 1 Not Estab. % [facility] # Neutros 4.9 1.4 - 7.0 x10E3/uL [facility] # Lymphs 3.2(H) 0.7 - 3.1 x10E3/uL [facility] # Monos 0.7 0.1 - 0.9 x10E3/uL [facility] # Eos 0.3 0.0 - 0.4 x10E3/uL [facility] Baso (Absolute) 0.1 0.0 - 0.2 x10E3/uL [facility] % Immature Grans 0 Not Estab. % [facility] # Immature Grans 0.0 0.0 - 0.1 x10E3/uL [facility] Blood 10/07/2023 4:31 PM EDT 10/07/2023 Narrative [facility] - 10/08/2023 11:08 AM EDT Performed at: ??01 - [facility] [address] ??[id number] Senior Process Analyst: Vinay Mustafa PhD, Phone: ??[phone] us Branden Lares MD LAB BLOOD ORDERABLES Final Resul t [facility] documented in this encounter Visit Diagnoses Diagnosis Chronic bilateral low back pain without sciatica- Primary Class 3 severe obesity due to excess calories without serious comorbidity with body mass index (BMI) of 40.0 to 44.9 in adult (HCC) Swelling of lower extremity documented in this encounter Care Teams Bag Shaker Relationship Specialty Start Date End Date Branden Lares MD [address] [place] [address] PCP - General Internal Medicine/Pediatrics 01/08/22 documented as of this encounter
--- OUTSIDE RECORDS SUMMARY | 2024-02-07 11:23 | XMS_ITS | Encounter Summary ---
Author Organization [employer] Address [address] [place] [address] Care Team Providers Care Hvac/R Instructor Name Role Phone Branden Lares MD Primary Care Provider [phone] Encounter Details Date Type Department Care Team (Late st Contact Info) Description 08/10/2022 Orders Only [facility] Primary [facility] [place] [address] [place] [address] ProviderNathaniel MD [address] [place] [address] Social History Tobacco Use Types Packs/Day Years [...] Procedure Name Priority Date/Time Associated Diagnosis Comments EXTERNAL LAB - MISC Routine 08/04/2022 EXTER[address] IMAGING - CT Routine 08/04/2022 documented in this encounter Results * EXTERNAL LAB - MISC (08/04/2022) us Historical Provider LAB BLOOD ORDERABLES Martine l Result * EXTERNAL IMAGING - CT (08/04/2022) Anatomical Region Laterality Modality Other us Historical Provider HEALTH MAINTENANCE Final Result documented in this encounter Visit Diagnoses Not on filedocumented in this encounter Care Teams Hvac/R Instructor Relationship Specialty Start Date End Date Branden Lares MD [address] [place] [address] PCP - General Internal Medicine/Pediatrics 01/08/22 documented as of this encounter
--- OUTSIDE RECORDS SUMMARY | 2024-02-07 11:23 | XMS_ITS | Encounter Summary ---
Author Organization [employer] Address [address] [place] [address] Care Team Providers Care Champion Of Sustainable Design Name Role Phone Branden Lares MD Primary Care Provider [phone] Reason for Visit * Reason Comments Follow-up Pt here for back forest n issues. Encounter Details Date Type Department Care Team (Late st Contact Info) Description 11/17/2023 11:15 AM EDT Office Visit [facility] Primary Care [facility] [address] [place] [address] Branden Lares MD [address] [place] [address] Chronic bilateral low back pain without sciatica (Primary Dx); Class 3 severe obesity due to excess calories without serious comorbidity with body mass index (BMI) of 40.0 to 44.9 in adult (HCC); Prediabetes; Primary hypertension Social History Tobacco Use Types Packs/Day [...] Date Efrain rded Speak language other than Tajik at home Not on file 04/09/2023 Want [...] Pulse 45 11/17/2023 11:08 AM EDT Temperature - - Respiratory Rate - - Oxygen Saturation 98% 11/17/2023 11:08 AM EDT Inhaled Oxygen Concentration - - Weight 153.8 kg (339 lb) 11/17/2023 11:08 AM EDT Height 185.4 cm (6' 1 ) 11/17/2023 11:08 AM EDT Body Mass Index 44.73 11/17/2023 11:08 AM EDT documented in this encounter Progress Notes * Branden Lares MD - 11/17/2023 11:15 AM EDT Subjective: Willie Giron is a 53 y.o. male. Chief Complaint Patient presents with Follow-up Pt here for back pain issues. I have reviewed and/or updated the following: Tobacco Allergies Meds Problems Med Hx Surg Hx Fam Hx Here to follow up chronic low back pain, obesity, prediabetes, hypertension, Review of Systems All other systems reviewed and are negative. Objective: BP (!) 155/90 (BP Location: Left arm, Patient Position: Sitting) Pulse (!) 45 Ht 1.854 m (6' 1 ) Wt (!) 153.8 kg (339 lb) SpO2 98% BMI 44.73 kg/m?? Physical Exam Vitals reviewed. Constitutional: Appearance: Normal appearance. He is obese. HENT: Head: Normocephalic and atraumatic. Right Ear: External ear normal. Left Ear: External ear normal. Nose: Nose normal. Pulmonary: Effort: Pulmonary effort is normal. [...] (BMI) of 40.0 to 44.9 in adult ([facility]) 3. Prediabetes 4. Primary hypertension Plan: Diagnoses and all orders for this visit: Chronic bilateral low back pain without sciatica - getting set up for rhizotomy soon. Takes occasional diclofenac and gabapentin which is helpful Class 3 severe obesity due to excess calories without serious comorbidity with body mass index (BMI) of 40.0 to 44.9 in adult ([facility]) - complicates care Prediabetes - previously elevated. Will repeat at next lab draw Primary hypertension - elevated today and on prior visits. No symptoms. Likely in part due to pain as per above. Will monitor. If elevated at next visit, will start arb I spent a total of 20-29 minutes reviewing the patient's chart, evaluating the patient, prescribingmedications, ordering tests and imaging, consulting with colleagues about the patient's condition, researching the patient's conditions and complaints, and charting the encounter. No follow-ups on file. documented in this encounter Plan of Treatment Not on file documented as of this encounter Visit Diagnoses Diagnosis Chronic bilateral low back pain without sciatica- Primary Class 3 severe obesity due to excess calories without serious comorbidity with body mass index (BMI) of 40.0 to 44.9 in adult ([facility]) Prediabetes Other abnormal glucose Primary hypertension Unspecified essential hypertension documented in this encounter Care Teams Champion Of Sustainable Design Relationship Specialty Start Date End Date Branden Lares MD [address] [place] [address] PCP - General Internal Medicine/Pediatrics 01/08/22 documented as of this encounter
--- OUTSIDE RECORDS SUMMARY | 2024-02-07 11:23 | XMS_ITS | Encounter Summary ---
Author Organization [facility] Address [address] [place] [address] Phone [email or web address] Care Team Providers Care Marbleizing Machine Tender Name Role Phone Provider, No Primary Care Provider Unavailabl e Reason for Visit * Reason Comments Return to Work / Duty Encounter Details Date Type Department Care Team (Latest Contact Info) Description 07/18/2021 2:30 PM EDT Clinical Support [facility] [place] [address] [facility] [address] [place] [address] Rebecca Shannon RN [address] [place] [address] Return to work evaluation (Primary [...] Depression Answer Date Recorded PHQ Total Score Not on file 11/13/2020 Sex and Gender Information Value Date Recorded Sex Assigned at Not on file Legal Sex Male 7:14 AM CDT Gender Identity Not on file Sexual Orientation Not on file documented as of this encounter Last Filed Vital Signs Vital Sign Reading Time Taken Comments Blood Pressure 151/83 07/18/2021 1:59 PM EDT Pulse 54 07/18/2021 1:59 PM EDT Temperature 36.3 ??C (97.4 ??F) 07/18/2021 1:59 PM ED T Respiratory Rate - - Oxygen Saturation 97% 07/18/2021 1:59 PM EDT Inhaled Oxygen Concentration - - Weight - - Height - - Body Mass Index - - documented in this encounter Patient Instructions * Patient Instructions* Rebecca Shannon RN - 07/18/2021 2:30 PM EDT Not fit for duty d/t dizziness Follow up with your PCP/ UTC/ ER for continuing symptoms and return to clinic when released to regular duty for RTW clearance. documented in this encounter Progress Notes * Rebecca Shannon RN - 07/18/2021 2:30 PM EDT Willie Giron Jr is a 51 y.o. male who presents for personal return to work. WD ID:[id number] Employer: [employer] Date of Hire: 10/21/2020 Cost Center: [id number] Description: Maintenance Shift: 2 Full-time GL and #: Salvador Razo LDW: 07/14/21 RELEASE: 07/18/21 [facility]. [place] was diagnosed with a sinus infection and was given antibiotics and cough syrup 07/14/21. TM began to have chest pain 07/15/21 and was diagnosed at [facility] with pleurisy. States he was given 2 injections including antiinflammatory and felt much better. TM states last night pain began to return when he coughs, states pain is not as bad. TM attempted to get back into [facility] today but was unable to be seen today. States he gets dizzy during coughing spells. TM short of breath walkingto treatment room. Discussed with TM that d/t dizziness he is not fit for duty and needs to be reevaluated as soon a possible. TM verbalizes understanding and will go to urgent treatment for further care. TM notified that he will need to return to [place] [address] once released to regular duty prior to the start of his next shift. Mary Keach, RN Visit Vitals BP 151/83 Pulse 54 Temp 97.4 ??F SpO2 97% Smoking Status Never Smoker No data recorded ICD-10-CM ICD-9-CM 1. Return to work evaluation Z76.89 V72.85 Patient Instructions Not fit for duty d/t dizziness Follow up with your PCP/ UTC/ ER for continuing symptoms and return to clinic when released to regular duty for RTW clearance. Rebecca Shannon RN documented in this encounter Plan of Treatment Not on file documented as of this encounter Visit Diagnoses Diagnosis Return to work evaluation- Primary Other specified examination documented in this encounter Care Teams Marbleizing Machine Tender Relationship Specialty Start Date End Date Provider, FRANCIA Leigh [address] PCP - General Assistant At Surgery 07/18/21 documented as of this encounter
--- OUTSIDE RECORDS SUMMARY | 2024-02-07 11:23 | XMS_ITS | Encounter Summary ---
Author Organization [facility] Address [address] [place] [address] Phone [email or web address] Care Team Providers Care Respiratory Support Technician Name Role Phone Unavailable Primary Care Provider Unavailabl e Reason for Visit * Reason Comments Ear / Eye / Nose/ Throat Issue cough, si nus drainage coughing up yellow mucus. headach hit hard wednesday but has had this for about a week. Encounter Details Date Type Department Care Team (Late st Contact Info) Description 07/14/2021 2:00 PM EDT Office Visit [facility] [address] [place] [address] Lily Kolb, AGUSTÍN [address] [place] [address] Acute non-recurrent maxillary sinusitis (Primary Dx); Viral upper respiratory infection Social History Tobacco Use Types Packs/Day Years [...] Sign Reading Time Taken Comments Blood Pressure 138/62 07/14/2021 2:04 PM EDT Pulse 89 07/14/2021 2:04 PM EDT Temperature 36.6 ??C (97.9 ??F) 07/14/2021 2:04 PM ED T Respiratory Rate - - Oxygen Saturation 97% 07/14/2021 2:04 PM EDT Inhaled Oxygen Concentration - - Weight - - Height - - Body Mass Index - - documented in this encounter Patient Instructions * Patient Instructions* Lily Kolb NP - 07/14/2021 2:00 PM EDT Medications as prescribed May take dayquil (or generic) during the day and cough syrup at night Increase oral fluids Recommend OTC saline rinse for sinuses Follow up if no improvement in 7 days, sooner if needed documented in this encounter Progress Notes * Lily Kolb NP - 07/14/2021 2:00 PM EDT Subjective: Willie Giron Jr is a 51 y.o. male. Chief Complaint: Chief Complaint Patient presents with ??? Ear / Eye / Nose/ Throat Issue cough, sinus drainage coughing up yellow mucus. headach hit hard wednesday but has had this for about a week. Taking dayquil History Reviewed: The following portions of the patient's chart were reviewed in this encounter and updated as appropriate: Allergies Patient presents for cough, congestion, pain to right side of face and maxillary sinus area, statesit almost feels like a tooth ache at times. Onset 6 days ago, started with congestion which he though were allergies and then just got worse. States that he has had a productive cough that is keepinghim up at night. He has been taking dayquil. He is afraid that it has gone to his lungs because he b ecomes short of breath when coughing now. He has had to elevate the head of his bed at night due tocoughing. He does wear a CPAP at home. Admits fever Wednesday night with chills - 99.5 measured after taking dayquil. Review of Systems Constitutional: Positive for chills (see HPI), fatigue (states very little sleep d/t cough) and fever (see HPI). HENT: Positive for congestion (see HPI), rhinorrhea, sinus pressure (See HPI), sinus pain and sore throat. Negative for ear discharge, facial swelling, hearing loss and trouble swallowing. Eyes: Negative. Respiratory: Positive for cough and shortness of breath (See HPI). Cardiovascular: Negative. Neurological: Negative for dizziness. Visit Vitals BP 138/62 Pulse 89 Temp 97.9 ??F SpO2 97% Smoking Status Never Smoker Objective: Physical Exam Constitutional: General: He is not in acute distress. Appearance: He is overweight. He is ill-appearing. He is not diaphoretic. HENT: Head: Normocephalic. Right Ear: Tympanic membrane, ear canal and external ear normal. Left Ear: Tympanic membrane, ear canal and external ear normal. Nose: Congestion present. Right Sinus: Maxillary sinus tenderness (tender and warm) present. No frontal sinus tenderness. Left Sinus: No maxillary sinus tenderness or frontal sinus tenderness. Mouth/Throat: Mouth: Mucous membranes are moist. Pharynx: Posterior oropharyngeal erythema present. No oropharyngeal exudate. Tonsils: No tonsillar exudate. Eyes: General: Right eye: No discharge. Left eye: No discharge. Pupils: Pupils are equal, round, and reactive to light. Cardiovascular: Rate and Rhythm: Normal rate and regular rhythm. Pulses: Normal pulses. Heart sounds: Normal heart sounds. Pulmonary: Effort: Pulmonary effort is normal. Breath sounds: Normal breath sounds. Musculoskeletal: Cervical back: Normal range of motion. Lymphadenopathy: Cervical: Cervical adenopathy present. Right cervical: Superficial cervical adenopathy present. Left cervical: Superficial cervical adenopathy present. Neurological: General: No focal deficit present. Mental Status: He is alert. Assessment/Plan: Diagnoses and all orders for this visit: Acute non-recurrent maxillary sinusitis - amoxicillin-clavulanate (Augmentin) 875-125 MG per tablet; Take 1 tablet by mouth twice a day for7 days. Viral upper respiratory infection - promethazine-dextromethorphan (PROMETHAZINE-DM) 6.25-15 MG/5ML syrup; Take 5 mL by mouth 4 (four)times a day if needed for cough for up to [address] work within 8 hours of taking this medication Plan of care reviewed with patient at the conclusion of today's visit. Education was provided in regards to diagnosis, management and any prescribed or recommended OTC medications. Patient verbalizesunderstanding of and agreement with management plan. Patient Instructions Medications as prescribed May take dayquil (or generic) during the day and cough syrup at night Increase oral fluids Recommend OTC saline rinse for sinuses Follow up if no improvement in 7 days, sooner if needed Pt evaluated with Afshin THOMAS student, FNU, agree with above. Lily Kolb NP documented in this encounter Plan of Treatment Not on file documented as of this encounter Visit Diagnoses Diagnosis Acute non-recurrent maxillary sinusitis- Primary Viral upper respiratory infection Acute upper respiratory infections of unspecified site documented in this encounter
--- OUTSIDE RECORDS SUMMARY | 2024-02-07 11:23 | XMS_ITS | Encounter Summary ---
Author Organization [facility] Address [address] [place] [address] Phone [email or web address] [email or web address] Care Team Providers Care Neurology Epilepsy Physician Name Role Phone Provider, No Primary Care Provider Unavailabl e Encounter Details Date Type Department Care Team (Late st Contact Info) Description 10/23/2021 Telephone [facility] [address] [place] [address] Fela Rodríguez RN [address] [place] [address] Social History Tobacco Use Types [...] encounter Miscellaneous Notes * Telephone Encounter - Fela Rodríguez RN - 10/23/2021 3:36 PM EDT Attempted to reach TM for Follow up for test results call out, no answer, VM left directing TM to call [facility]NL back piper. Fela Rodríguez RN documented in this encounter Plan of Treatment Not on file documented as of this encounter Visit Diagnoses Not on filedocumented in this encounter Care Teams Neurology Epilepsy Physician Relationship Specialty Start Date End Date Provider, [place] [address] PCP - General Rectifying Operator 07/18/21 documented as of this encounter
--- OUTSIDE RECORDS SUMMARY | 2024-02-07 11:23 | XMS_ITS | Encounter Summary ---
Author Organization [facility] Address [address] [place] [address] Phone [email or web address] [email or web address] Care Team Providers Care Bottle Label Inspector Name Role Phone Unavailable Primary Care Provider Unavailabl e Reason for Visit * Reason Comments Return to Work / Duty Encounter Details Date Type Department Care Team (Late st Contact Info) Description 08/01/2018 8:30 AM EDT Office Visit [address] [place] [address] Veronique Salas, HOSPITALIST [address] [place] [address] Return to work evaluation (Primary [...] Sign Reading Time Taken Comments Blood Pressure 137/81 08/01/2018 9:11 AM EDT Pulse 65 08/01/2018 9:11 AM EDT Temperature 37.1 ??C (98.8 ??F) 08/01/2018 9:11 AM ED T Respiratory Rate 14 08/01/2018 9:11 AM EDT Oxygen Saturation 98% 08/01/2018 9:11 AM EDT Inhaled Oxygen Concentration - - Weight - - Height - - Body Mass Index - - documented in this encounter Patient Instructions * Patient Instructions* Veronique Salas RN - 08/01/2018 8:30 AM EDT Regular duty 08/01/2018 Follow up as needed documented in this encounter Progress Notes * Veronique Salas RN - 08/01/2018 8:30 AM EDT Willie Giron Jr is a 48 y.o. male who presents for personal return to work. ? TM: [id number] ?? 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 PMLOA. TM presents to return to work following time off for lower back pain. His injections wore off and he had to have another set. States that he has about 70% improvement overall. He is feeling fit for duty today. States that he woke up on 07/20/18 and could not get out of bed. He was able to get in to see the specialist on 07/21/2018. TM had another set of injections in his back at that time. He then followed up with specialist on 07/26/2018 and they released him as of 08/01/2018. TM denies any current concerns. He currently rates pain 03/31. Veronique Salas RN Visit Vitals BP 137/81 Pulse 65 Temp 98.8 ??F (Oral) Resp 14 SpO2 98% ICD-10-CM ICD-9-CM 1. Return to work evaluation Z76.89 V72.85 Patient Instructions Regular duty 08/01/2018 Follow up as needed Veronique Salas RN documented in this encounter Plan of Treatment Not on file documented as of this encounter Visit Diagnoses Diagnosis Return to work evaluation- Primary Other specified examination documented in this encounter
--- OUTSIDE RECORDS SUMMARY | 2024-02-07 11:23 | XMS_ITS | Encounter Summary ---
Author Organization [facility] Address [address] [place] [address] Phone [email or web address] [email or web address] Care Team Providers Care Boiler Room Helper Name Role Phone Provider, No Primary Care Provider Unavailabl e Encounter Details Date Type Department Care Team (Late st Contact Info) Description 10/24/2021 Telephone [facility] [address] [place] [address] Fela Meyer RN [address] [place] [address] Social History Tobacco Use Types [...] Miscellaneous Notes * Telephone Encounter - Fela Meyer RN - 10/24/2021 10:12 AM EDT Attempted to contact TM with negative covid results. LVM to return call. Elie Meyer RN documented in this encounter Plan of Treatment Not on file documented as of this encounter Visit Diagnoses Not on filedocumented in this encounter Care Teams Boiler Room Helper Relationship Specialty Start Date End Date Provider, Ariadna [place] [address] PCP - General Pie Maker 07/18/21 documented as of this encounter
--- OUTSIDE RECORDS SUMMARY | 2024-02-07 11:23 | XMS_ITS | Encounter Summary ---
Author Organization [facility] Address [address] [place] [address] Care Team Providers Care Barrel Straightener Name Role Phone Susie Lares MD Primary Care Provider [phone] Reason for Visit * Reason Comments Follow-up Pt here for follow u p on eyes Encounter Details Date Type Department Care Team (Late st Contact Info) Description 08/25/2022 2:00 PM EDT Office Visit [facility] Primary Care [address] [address] Susie Lares MD [address] [place] [address] Preseptal cellulitis (Primary Dx) Social History Tobacco Use Types Packs/Day Years Used Date Smoking Tobacco: Never Smokeless Tobacco: Never Tobacco Cessation:Counseling Given: Not Answered Sex and Gender Information Value Date Recorded Sex Assigned at Not on file Legal Sex Male 5:48 PM CDT Gender Identity Not on file Sexual Orientation Not on file documented as of this encounter Last Filed Vital Signs Vital Sign Reading Time Taken Comments Blood Pressure 173/97 08/25/2022 2:12 PM EDT Pulse 53 08/25/2022 2:12 PM EDT Temperature - - Respiratory Rate - - Oxygen Saturation 96% 08/25/2022 2:12 PM EDT Inhaled Oxygen Concentration - - Weight 152.4 kg (336 lb) 08/25/2022 2:12 PM EDT Height 185.4 cm (6' 1 ) 08/25/2022 2:12 PM EDT Body Mass Index 44.33 08/25/2022 2:12 PM EDT documented in this encounter Progress Notes * Susie Lares MD - 08/25/2022 2:00 PM EDT Subjective: Willie Giron is a 52 y.o. male. Chief Complaint Patient presents with ??? Follow-up Pt here for follow up on eyes I have reviewed and/or updated the following: Tobacco Allergies Meds Problems Med Hx Surg Hx Fam Hx Patient here to followup after treatment of preseptal cellulitis. He has been on oral and topical antibiotics for about 2 weeks. Swelling is largely improved. Does still have faint discharge and someblurry vision which is improving as well. He is able to do all of his adls including driving. He iscleared to return to work on . Review of Systems All other systems reviewed and are negative. Objective: BP (!) 173/97 (BP Location: Right arm, Patient Position: Sitting) Pulse 53 Ht 1.854 m (6' 1 ) Wt (!) 152.4 kg (336 lb) SpO2 96% BMI 44.33 kg/m?? Physical Exam Constitutional: Appearance: Normal appearance. He is obese. HENT: Head: Normocephalic and atraumatic. Right Ear: External ear normal. Left Ear: External ear normal. Ears: Comments: Mild swelling around left eye. Greatly improved from prior. EOM intact. Trace conjunctival erythema. Pulmonary: Effort: Pulmonary effort is normal. Neurological: General: No focal deficit present. Mental Status: He is alert. Mental status is at baseline. Psychiatric: Mood and Affect: Mood normal. Behavior: Behavior normal. Thought Content: Thought content normal. Judgment: Judgment normal. Assessment: 1. Preseptal cellulitis Plan: Diagnoses and all orders for this visit: Preseptal cellulitis - completed antibiotic course. Symptoms nearly fully resolved. Cleared to return to work on Return if symptoms worsen or fail to improve. SUSIE LARES MD 08/25/2022 documented in this encounter Plan of Treatment Not on file documented as of this encounter Visit Diagnoses Diagnosis Preseptal cellulitis- Primary Abscess of eyelid documented in this encounter Care Teams Barrel Straightener Relationship Specialty Start Date End Date Susie Lares MD [address] [place] [address] PCP - General Internal Medicine/Pediatrics 01/08/22 documented as of this encounter
--- OUTSIDE RECORDS SUMMARY | 2024-02-07 11:23 | XMS_ITS | Encounter Summary ---
Author Organization [facility] Address [address] [place] [address] Phone [email or web address] [email or web address] Care Team Providers Care Control Systems Technician Name Role Phone Unavailable Primary Care Provider Unavailabl e Reason for Visit * Reason Comments Eye Exam Encounter Details Date Type Department Care Team (Late st Contact Info) Description 10/29/2020 1:30 PM EDT Office Visit [facility] [address] [place] [address] Ishaan Grubbs, SARA [address] [place] [address] Hyperopia of both eyes (Primary Dx) Social History Tobacco Use Types Packs/Day Years Used Date Smoking Tobacco: Never Assessed Sex and Gender Information Value Date Recorded Sex Assigned at Not on file Legal Sex Male 7:14 AM CDT Gender Identity Not on file Sexual Orientation Not on file documented as of this encounter Progress Notes * Ishaan Grubbs, SARA - 10/29/2020 1:30 PM EDT Subjective: Willie Giron Jr is a 50 y.o. male. Chief Complaint Eye Exam HPI Personal eye exam; Reports problems with past 2-3 pairs of glasses and doctors have not been able to make things look normal; He has double vision and blur in right eye; Vision clears up if he puts pressure on upper lid with his finger Reports no COVID symptoms today Last edited by Ishaan Grubbs, SARA on 10/29/2020 2:12 PM. (History) ROS Positive for: Eyes (history of Histoplasmosis with laser tx (OS)) Negative for: Constitutional, Gastrointestinal, Neurological, Skin, Genitourinary, Musculoskeletal,HENT, Endocrine, Cardiovascular, Respiratory, Psychiatric, Allergic/Imm, Heme/Lymph Last edited by Ishaan Grubbs, SARA on 10/29/2020 2:12 PM. (History) Visual Acuity Visual Acuity (Snellen - Linear) Right Left Dist cc 20/40 20/20 Near cc 20/40 20/20 Correction: Glasses Pupils Pupils Pupils Dark Light APD Right PERRL 7 3 None Left PERRL 7 3 None Extraocular Movement Extraocular Movement Right Left Full, Ortho Full, Ortho Confrontational Visual Quinonez Visual Quinonez Left Right Full Full Tonometry Tonometry (Non-contact air puff, 1:52 PM) Right Left Pressure 15 14 Color Color Right Left Ishihara 10/27 10/27 Wearing Rx Wearing Rx Sphere Cylinder [place] Add Right +0.25 -1.25 175 +1.75 Left +0.50 -0.25 151 +1.75 Type: PAL Keratometry Keratometry (Automated) K1 [place] K2 [place] Mires Right 40.50 176 42.75 086 Normal Left 41.00 169 42.25 079 Normal Manifest Refraction Manifest Refraction Sphere Cylinder [place] Dist VA Add Near VA Right +1.50 -1.75 045 20/20 +1.75 J1 Left +1.25 -1.00 103 20/20 +1.75 J1 Eyeglass Final Rx Eyeglass Final Rx Sphere Cylinder [place] Dist VA Add Near VA Right +1.50 -1.75 045 20/20 +1.75 J1 Left +1.25 -1.00 103 20/20 +1.75 J1 Type: Bifocal Expiration Date: 10/30/2021 Eyeglass Final Rx #2 Sphere Cylinder [place] Dist VA Add Near VA Right +3.00 -1.75 045 J1 Left +2.75 -1.00 103 J1 Type: SVL Expiration Date: 10/30/2021 Comments: Reading/ computer only Eyeglass Final Rx #3 Sphere Cylinder [place] Dist VA Add Near VA Right +1.50 -1.75 045 20/20 Left +1.25 -1.00 103 20/20 Type: SVL Expiration Date: 10/30/2021 Comments: distance Dilation Dilation Declined DFE today - because he is driving for 1 hour after exam; He understands importance of DFE Main Ophthalmology Exam External Exam Right Left External Normal Normal Slit Lamp Exam Right Left Lids/Lashes Normal Normal Conjunctiva/Sclera White and quiet White and quiet Cornea Clear Clear Anterior Chamber Deep and quiet Deep and quiet Iris Round and reactive Round and reactive Lens Clear Clear Vitreous Normal Normal Fundus Exam Right Left Disc Peripapillary atrophy Peripapillary atrophy C/D Ratio 0.3 0.3 Macula Flat and 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 Diagnoses and all orders for this visit: Hyperopia of both eyes (Primary) - new glasses prescription given - continue to wear corrective lenses full-time Normal Ocular Health OU - no treatment needed - recommend yearly eye exams Ishaan Grubbs OD documented in this encounter Plan of Treatment Not on file documented as of this encounter Visit Diagnoses Diagnosis Hyperopia of both eyes- Primary documented in this encounter
--- OUTSIDE RECORDS SUMMARY | 2024-02-07 11:23 | XMS_ITS | Encounter Summary ---
Author Organization [facility] Address [address] [place] [address] Care Team Providers Care Sales Systems Engineer Name Role Phone Susie Lares MD Primary Care Provider [phone] Reason for Visit * Reason Comments Follow-up Pt here for follow u p on eye and ER visit Encounter Details Date Type Department Care Team (Late st Contact Info) Description 08/10/2022 1:45 PM EDT Office Visit [facility] Primary Care [address] [address] Susie Lares MD [address] [place] [address] Primary hypertension (Primary Dx); Preseptal cellulitis; Class 3 severe obesity due to excess calories without serious comorbidity with body mass index (BMI) of 40.0 to 44.9 in adult (HCC) Social History Tobacco Use Types Packs/Day Years [...] Sign Reading Time Taken Comments Blood Pressure 149/91 08/10/2022 2:16 PM EDT Pulse 52 08/10/2022 1:52 PM EDT Temperature - - Respiratory Rate - - Oxygen Saturation 98% 08/10/2022 1:52 PM EDT Inhaled Oxygen Concentration - - Weight 147.7 kg (325 lb 11.2 oz) 08/10/2022 1:52 PM EDT Height 185.4 cm (6' 1 ) 08/10/2022 1:52 PM EDT Body Mass Index 42.97 08/10/2022 1:52 PM EDT documented in this encounter Progress Notes * Susie Lares MD - 08/10/2022 1:45 PM EDT Subjective: Willie Giron is a 52 y.o. male. Chief Complaint Patient presents with ??? Follow-up Pt here for follow up on eye and ER visit I have reviewed and/or updated the following: Tobacco Allergies Meds Problems Med Hx Surg Hx Fam Hx Patient here to follow up preseptal cellulitis, hypertension, and obesity. See ap for details on care. Review of Systems All other systems reviewed and are negative. Objective: BP (!) 149/91 (BP Location: Right arm, Patient Position: Sitting) Pulse 52 Ht 1.854 m (6' 1 ) Wt (!) 147.7 kg (325 lb 11.2 oz) SpO2 98% BMI 42.97 kg/m?? Physical Exam Constitutional: Appearance: Normal appearance. He is obese. HENT: Head: Normocephalic and atraumatic. Right Ear: External ear normal. Left Ear: External ear normal. Eyes: Comments: Left eyelid is swollen but greatly improved from last evaluation. He has some mild conjunctival erythema but it is much improved from piror evaluation. EOM intact. Pulmonary: Effort: Pulmonary effort is normal. Neurological: General: No focal deficit present. Mental Status: He is alert. Mental status is at baseline. Psychiatric: Mood and Affect: Mood normal. Behavior: Behavior normal. Thought Content: Thought content normal. Judgment: Judgment normal. Assessment: 1. Primary hypertension 2. Preseptal cellulitis 3. Class 3 severe obesity due to excess calories without serious comorbidity with body mass index (BMI) of 40.0 to 44.9 in adult (HCC) Plan: Diagnoses and all orders for this visit: Primary hypertension - elevated in clnic today. No symptoms. Goal <140/90. Will rtc in 1 week for recheck and possible medications. He is currently not medicated at this time. Reviewed cmp from recent er visit which was normal. Preseptal cellulitis - saw one week ago when I was concerned for orbital cellulitis and I recommended he go to the er meli evaluated. I reviewed the note from the er that told me what was done there. I also reviewed a cmp and cbc that were obtained there and were normal. CT scan was also done that was not concerning for orbital cellulitis. He was given erythromycin ointment and follow up with an eye doctor. I also reviewed the not from the eye doctor who prescribed augmentin, gentamycin eye drops, and ciprofloxacin eyedrops. preseptal cellulitis is largely improved. I told the patient to continue the antibioticsas prescribed and iw ill follow up with him in one week to likely release him to return to work PLAN - continue augmentin - continue cipro drops - continue gentamicin drops Class 3 severe obesity due to excess calories without serious comorbidity with body mass index (BMI) of 40.0 to 44.9 in adult (HCC) - complicates care. Increases all cause morbidity and mortality. Could have contributed to his development of preseptal cellulitis. I will check lipids, a1c at next visit and likely start wegovy to help him with weight loss PLAN - lipids and a1c at follow upw - likely start wegovy at follow up visit Return in about 1 week (around 08/17/2022). SUSIE LARES MD 08/10/2022 documented in this encounter Plan of Treatment Not on file documented as of this encounter Visit Diagnoses Diagnosis Primary hypertension- Primary Unspecified essential hypertension Preseptal cellulitis Abscess of eyelid Class 3 severe obesity due to excess calories without serious comorbidity with body mass index (BMI) of 40.0 to 44.9 in adult ([facility]) documented in this encounter Care Teams Sales Systems Engineer Relationship Specialty Start Date End Date Susie Lares MD [address] [place] [address] PCP - General Internal Medicine/Pediatrics 01/08/22 documented as of this encounter
--- OUTSIDE RECORDS SUMMARY | 2024-02-07 11:23 | XMS_ITS | Encounter Summary ---
Author Organization [employer] Address [address] [place] [address] Care Team Providers Care Players Assistant Name Role Phone Susie Lares MD Primary Care Provider [phone] Reason for Visit * Reason Comments Follow-up ON HIS EYE Encounter Details Date Type Department Care Team (Late st Contact Info) Description 08/18/2022 2:00 PM EDT Office Visit [facility] Primary Care - [address] [address] Susie Lares MD [address] [place] [address] Preseptal cellulitis (Primary Dx) Social History [...] Sign Reading Time Taken Comments Blood Pressure 138/81 08/18/2022 1:52 PM EDT Pulse 50 08/18/2022 1:52 PM EDT Temperature 36.7 ??C (98.1 ??F) 08/18/2022 1:52 PM ED T Respiratory Rate - - Oxygen Saturation 99% 08/18/2022 1:52 PM EDT Inhaled Oxygen Concentration - - Weight 150.1 kg (331 lb) 08/18/2022 1:52 PM EDT Height 185.4 cm (6' 1 ) 08/18/2022 1:52 PM EDT Body Mass Index 43.67 08/18/2022 1:52 PM EDT documented in this encounter Progress Notes * Susie Lares MD - 08/18/2022 2:00 PM EDT Subjective: Willie Giron is a 52 y.o. male. Chief Complaint Patient presents with ??? Follow-up ON HIS EYE I have reviewed and/or updated the following: Tobacco Allergies Meds Problems Med Hx Surg Hx Fam Hx Patient is here to follow up preseptal cellulitis. See ap for details on care. Review of Systems All other systems reviewed and are negative. Objective: BP 138/81 Pulse 50 Temp 98.1 ??F (36.7 ??C) Ht 1.854 m (6' 1 ) Wt (!) 150.1 kg (331 lb) SpO2 99% BMI 43.67 kg/m?? Physical Exam Constitutional: Appearance: Normal appearance. He is obese. HENT: Head: Normocephalic and atraumatic. Right Ear: External ear normal. Left Ear: External ear normal. Eyes: Extraocular Movements: Extraocular movements intact. Conjunctiva/sclera: Conjunctivae normal. Pupils: Pupils are equal, round, and reactive to light. Comments: Eye is much improved. Slight swelling of the left eye lid but no conjunctivitis, proptosis, or erythema. Pulmonary: Effort: Pulmonary effort is normal. Neurological: General: No focal deficit present. Mental Status: He is alert. Mental status is at baseline. Psychiatric: Mood and Affect: Mood normal. Behavior: Behavior normal. Thought Content: Thought content normal. Judgment: Judgment normal. Assessment: 1. Preseptal cellulitis Plan: Diagnoses and all orders for this visit: Preseptal cellulitis - recently completed treatment with antibiotic eye drops, eye ointment, and oral antibiotics for preseptal cellulitis. Has largely improved. Stopped antibiotics yesterday and still generally well butthinks it may be getting a little worse again. She has an appointment with an manager diesel on . I think he just still have some residual swelling from the treated preseptal cellulitis but I will continue eye drops, ointment, and oral antibiotics for one more week. Refilled Augmentin PLAN - amoxicillin-clavulanate (AUGMENTIN) 875-125 mg per tablet; Take 1 tablet by mouth in the morning and 1 tablet before bedtime. Return in about 1 week (around 08/25/2022). SUSIE LARES MD 08/18/2022 documented in this encounter Plan of Treatment Not on file documented as of this encounter Visit Diagnoses Diagnosis Preseptal cellulitis- Primary Abscess of eyelid documented in this encounter Care Teams Players Assistant Relationship Specialty Start Date End Date Susie Lares MD [address] [place] [address] PCP - General Internal Medicine/Pediatrics 01/08/22 documented as of this encounter
--- OUTSIDE RECORDS SUMMARY | 2024-02-07 11:23 | XMS_ITS | Encounter Summary ---
Author Organization [employer] Address [address] [place] [address] Care Team Providers Care Radius Corner Machine Operator Name Role Phone Branden Lares MD Primary Care Provider [phone] Encounter Details Date Type Department Care Team (Late st Contact Info) Description 10/14/2023 Abstract [facility] Primary Care [facility] [address] [place] [address] Branden Lares MD [address] [place] [address] Social History Tobacco Use Types [...] Date Efrain rded Speak language other than Chadian at home Not on file 04/09/2023 Want [...] on filedocumented in this encounter Care Teams Radius Corner Machine Operator Relationship Specialty Start Date End Date Branden Lares MD [address] [place] [address] PCP - General Internal Medicine/Pediatrics 01/08/22 documented as of this encounter
--- OUTSIDE RECORDS SUMMARY | 2024-02-07 11:23 | XMS_ITS | Encounter Summary ---
Author Organization [facility] Address [address] [place] [address] Phone [email or web address] Care Team Providers Care Ticket Attendant Name Role Phone Unavailable Primary Care Provider Unavailabl e Encounter Details Date Type Department Care Team (Late st Contact Info) Description 04/07/2021 Telephone [facility] [address] [place] [address] Fela Meyer RN [address] [place] [address] Social History Tobacco Use Types [...] Telephone Encounter - Fela Meyer RN - 04/07/2021 4:12 PM EST COVID-19 Screening Telephone Documentation Willie Giron Jr 1970 Workday : [id number] Date of Call: 04/07/2021 Employer: [employer] Site: City: [place] and State: [place] Current working location: Off work Shift: 2nd Shift Last Full Day Worked: 03/31/21 Last Day on Site: 03/31/21 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 Travel: In the last 14 days have you traveled internationally? a. No b. Travel type: N/A 2. In the last 14 days have you come in close contact (within 6 feet and for at least 15 minutes) with a confirmed or presumptive COVID-19 case (presumptive is defined as close contact with a person exhibiting signs/symptoms of fever, persistent cough or shortness of breath, compatible new loss of taste or smell, or 2 or more minor CDC symptoms COVID-19 without alternative diagnosis who has been tested or awaiting testing/evaluation)? This does not include asymptomatic individuals seeking testing. Yes a. Close contact's Symptom Onset date: Co-worker 03/27/21 1. Do you currently have, or have you had in the last 3 days any of the following symptoms? - Symptoms: -Fever > 100.4 - -New or persistent cough - -Shortness of breath - -Sore throat - -Chills - -Congestion - -Headache - -New loss of smell or taste - -Muscle pain/body aches - -Fatigue 2. Symptom Onset Date: 04/01/21 - Seen by Outside Provider for these symptoms: No 3. Have you ever been tested or Confirmed positive for covid? b. -Yes. Date: 04/11 4. COVID-19 vaccination status: Not vaccinated 5. TM verbalized understanding and agreement of Administrative Leave Expectations Yes 6. Quarantine guideline was sent to the submarine advisory team watch officer: Yes 7. National Nurse Line email was sent to the submarine advisory team watch officer for result reporting and submarine advisory team watch officer was directed to call the nurseline with updates and test results: Yes The [facility] protocol allows them up to 24hrs paid time to test. If they have any questions regardingany aspect of this protocol they will have to speak with their local human resource department. 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 You are still responsible to communicate with your computer programming manager/supervisor metal placing if you feel that you are unable to log into work for any reason. TM verbalized understanding and agreement of [facility]'s [facility] Expectation Yes NOTES FROM CALL: TM spoke with HR and was told to come back for antigen testing on 04/09/21. TM is still running fever and having loss of taste. Scheduled for Telehealth with provider. Estimated end of ADIEL-[facility]: 04/10/21 Disposition: Quarantined due to symptoms COVID-19 Status: Positive Next action: Symptom follow up Next action date: 04/08/21 Tm advised to call back with updates of any new symptoms, changes or as needed. 04/07/2021 ERTY DEVELOPER documented in this encounter Plan of Treatment Not on file documented as of this encounter Visit Diagnoses Not on filedocumented in this encounter
--- OUTSIDE RECORDS SUMMARY | 2024-02-07 11:23 | XMS_ITS | Encounter Summary ---
Author Organization [employer] Address [address] [place] [address] Care Team Providers Care Welt Wheeler Name Role Phone Branden Lares MD Primary Care Provider [phone] Reason for Visit * Reason Onset Date Comments Letter for School/Work 08/18/2022 Encounter Details Date Type Department Care Team (Late st Contact Info) Description 08/18/2022 Telephone [facility] Primary Care - [place] [address] [place] [address] Branden Lares MD [address] [place] [address] Letter for School/Work Social History Tobacco Use Types Packs/Day Years Used Date Smoking Tobacco: Never Smokeless Tobacco: Never Sex and Gender Information Value Date Recorded Sex Assigned at Not on file Legal Sex Male 5:48 PM CDT Gender Identity Not on file Sexual Orientation Not on file documented as of this encounter Miscellaneous Notes * Telephone Encounter - Dulce Veras - 08/19/2022 8:51 AM EDT Letter is printed, we cannot email we can fax to his employer or he can pick this up * Telephone Encounter - Dulce Veras - 08/18/2022 4:25 PM EDT Is this ok? * Telephone Encounter - Rhoda Mandel - 08/18/2022 4:12 PM EDT Patient is calling and mentioned that he is needing his work excuse to be until he see's Dr. Lares for a FU appointment. He mentioned that he is not able to drive and come pick it up, so is wanting to know if this could possibly be emailed. I let him know that I am not sure about it being emailed but would ask and someone would get back with him. [phone] documented in this encounter Plan of Treatment Not on file documented as of this encounter Visit Diagnoses Not on filedocumented in this encounter Care Teams Welt Wheeler Relationship Specialty Start Date End Date Branden Lares MD [address] [place] [address] PCP - General Internal Medicine/Pediatrics 01/08/22 documented as of this encounter
--- OUTSIDE RECORDS SUMMARY | 2024-02-07 11:23 | XMS_ITS | Encounter Summary ---
Author Organization [employer] Address [address] [address] Care Team Providers Care Live In Caregiver Name Role Phone Branden Lares MD Primary Care Provider [phone] Reason for Visit * Reason Onset Date Comments callback 08/18/2022 Encounter Details Date Type Department Care Team (Late st Contact Info) Description 08/18/2022 Telephone [facility] Primary Care - [place] [address] [place] [address] [place] [address] [place] [address] callback Social History Tobacco Use Types Packs/Day Years Used Date Smoking Tobacco: Never Smokeless Tobacco: Never Sex and Gender Information Value Date Recorded Sex Assigned at Not on file Legal Sex Male 5:48 PM CDT Gender Identity Not on file Sexual Orientation Not on file documented as of this encounter Miscellaneous Notes * Telephone Encounter - Christina Cooper - 08/18/2022 2:58 PM EDT 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 Wants to know if can extend the excuse until the 10th he comes back on the 9th. He can swing by and pick it up or his . Please advise [phone] documented in this encounter Plan of Treatment Not on file documented as of this encounter Visit Diagnoses Not on filedocumented in this encounter Care Teams Live In Caregiver Relationship Specialty Start Date End Date Branden Lares MD [address] [place] [address] PCP - General Internal Medicine/Pediatrics 01/08/22 documented as of this encounter
--- OUTSIDE RECORDS SUMMARY | 2024-02-07 11:23 | XMS_ITS | Encounter Summary ---
Author Organization [facility] Address [address] [place] [address] Phone [email or web address] Care Team Providers Care Professional Soccer Player Name Role Phone Unavailable Primary Care Provider Unavailabl e Reason for Visit * Reason Comments Return to Work / Duty Encounter Details Date Type Department Care Team (Late st Contact Info) Description 07/04/2018 9:00 AM EDT Office Visit [address] [place] [address] Alma Cortez PA [address] [place] [address] Encounter for fitness for duty examination (Primary Dx) Social History Tobacco Use Types Packs/Day Years Used Date Smoking Tobacco: Never Assessed Sex and Gender Information Value Date Recorded Sex Assigned at Not on file Legal Sex Male 7:14 AM CDT Gender Identity Not on file Sexual Orientation Not on file documented as of this encounter Last Filed Vital Signs Vital Sign Reading Time Taken Comments Blood Pressure 134/85 07/04/2018 9:10 AM EDT Pulse 57 07/04/2018 9:10 AM EDT Temperature 36.6 ??C (97.9 ??F) 07/04/2018 9:10 AM ED T Respiratory Rate 14 07/04/2018 9:10 AM EDT Oxygen Saturation 96% 07/04/2018 9:10 AM EDT Inhaled Oxygen Concentration - - Weight - - Height - - Body Mass Index - - documented in this encounter Patient Instructions * Patient Instructions* RYLEE Yarbrough - 07/04/2018 9:00 AM EDT 1. RTW without restrictions or reintro, due to job description 2. Request for a Vari desk. TM thinks it will help if he can sit or stand while doing his job 3. Follow up as needed with [facility] documented in this encounter Progress Notes * RYLEE Yarbrough - 07/04/2018 9:00 AM EDT Subjective Willie Giron Jr is a 48 y.o. male who presents for personal return to work. 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 SURGEON: RELEASE: [place]. LDW 05/16/18. Long hx with lower back pain, ~ 15 years. Recently off again for back pain, L side > right. TM here to RTW today. Tx with PCP , Specialist, Dr. Orantes. Had medication tx , PT, and Given injections a few weeks ago (one on each side of his spine). A Cocktail . TM States he will continue PT. Reports some pain in hips b/c of issues with gait d/t back pain. No follow up with Dr. Orantes at this time. Hoping injection will help with RTW. 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 Yocasta Salcedo RN History Reviewed: Allergies Meds Problems Med Hx Surg Hx Fam Hx Soc Hx Objective Visit Vitals BP 134/85 (Patient Position: Sitting) Pulse 57 Temp 97.9 ??F Resp 14 SpO2 96% See CC. TM states his back has been feeling great since his injection in his lower spine. TM deniesany current pain. Only notices pain when he does work overhead. Denies any pain down the legs. No urine or bowel dysfunction. 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 Nothing strenuous. Review of Systems Musculoskeletal: Positive for back pain. Negative for gait problem and myalgias. Neurological: Negative for numbness. Physical Exam Constitutional: He is oriented to person, place, and time. He appears well- developed and well-nourished. No distress. Neurological: He is alert and oriented to person, place, and time. No sensory deficit. Skin: Skin is warm and dry. He is not diaphoretic. Psychiatric: He has a normal mood and affect. His behavior is normal. Nursing note and vitals reviewed. Back Exam Tenderness The patient is experiencing no tenderness. Range of Motion The patient has normal back ROM. Muscle Strength The patient has normal back strength. Tests Straight leg raise right: negative Straight leg raise left: negative Other Sensation: normal Gait: normal Assessment: ICD-10-CM ICD-9-CM 1. Encounter for fitness for duty examination Z02.89 V70.5 -lower back pain Patient Instructions 1. RTW without restrictions or reintro, due to job description 2. Request for a Vari desk. TM thinks it will help if he can sit or stand while doing his job 3. Follow up as needed with [facility] documented in this encounter Plan of Treatment Not on file documented as of this encounter Visit Diagnoses Diagnosis Encounter for fitness for duty examination- Primary documented in this encounter
--- OUTSIDE RECORDS SUMMARY | 2024-02-07 11:23 | XMS_ITS | Encounter Summary ---
Author Organization [facility] Address [address] [place] [address] Phone [email or web address] Care Team Providers Care Grain Miller Helper Name Role Phone Unavailable Primary Care Provider Unavailabl e Encounter Details Date Type Department Care Team (Late st Contact Info) Description 07/15/2021 4:00 PM EDT Telemedicine [facility] [address] [place] [address] Lily Kolb NP [address] [place] [address] Acute non-recurrent maxillary sinusitis (Primary Dx); Viral upper respiratory infection; Acute left-sided thoracic back pain Social History Tobacco Use Types Packs/Day Years [...] * Patient Instructions* Lily Kolb NP - 07/15/2021 4:00 PM EDT Patient plans to go to Urgent care for evaluation - he does not feel he can work and plans to have them cover his time as well. His has already made an appointment. Okay to continue medications as prescribed. Return to work through 1999 clinic when released to regular duty documented in this encounter Progress Notes * Lily Kolb NP - 07/15/2021 4:00 PM EDT Subjective: Willie Giron Jr is a 51 y.o. male. TELEHEALTH VISIT: Today's visit was conducted via telehealth using audio only (telephone). TM consented to the telehealth process at onset of visit by responding to the following statements: I understand that telehealth has certain limitations regarding diagnosis and treatment of medical conditions, and I consent to participate in a telehealth visit today. Response: Yes I acknowledge that I can receive a copy of the [employer] Notice of Privacy Practices from the [employer] website ([email or web address]) and that my protected health information may only be shared as outlined in that Notice. Response: Yes I understand that this Consent for Treatment is valid from today's date until: the provider-patientrelationship is terminated; a new healthcare equal opportunity representative is appointed; or I revoke consent. Response: Yes Are you currently in the state of [place]? Yes Are you in a private space, or a space where you feel comfortable discussing your health care? Yes Chief Complaint: I think I have pleurisy History Reviewed: The following portions of the patient's chart were reviewed in this encounter and updated as appropriate: Tobacco Allergies Meds Problems Med Hx Surg Hx Fam Hx Patient was seen in clinic yesterday. States he went home and took his medication. He continued to cough and noticed back pain on left thoracic back. States that he feels like he can't take a deep breath. States he has had pleurisy once before and this is what it felt like. States stabbing/squeezing pain and he can't take a deep breath. States it's impossible to cough. Pain started at 2:00 AMtoday. He has been taking ibuprofen and it has not really helped. States the cough syrup did not really help last night and he was not able to sleep. States he does not feel like he can work. Denies CP. States that his has already made an appointment with urgent care, he would just like to know if it is okay to continue the medications that were prescribed yesterday since he has this new back pain. Review of Systems See HPI. Visit Vitals Smoking Status Never Smoker Objective: Physical Exam Deferred d/t telehealth Assessment/Plan: Diagnoses and all orders for this visit: Acute non-recurrent maxillary sinusitis Viral upper respiratory infection Acute left-sided thoracic back pain Patient Instructions Patient plans to go to Urgent care for evaluation - he does not feel he can work and plans to have them cover his time as well. His has already made an appointment. Okay to continue medications as prescribed. Return to work through 1999 clinic when released to regular duty Pt evaluated with Afshin THOMAS student, FNU, agree with above. Lily Kolb NP documented in this encounter Plan of Treatment Not on file documented as of this encounter Visit Diagnoses Diagnosis Acute non-recurrent maxillary sinusitis- Primary Viral upper respiratory infection Acute upper respiratory infections of unspecified site Acute left-sided thoracic back pain documented in this encounter
--- OUTSIDE RECORDS SUMMARY | 2024-02-07 11:23 | XMS_ITS | Encounter Summary ---
Author Organization [employer] Address [address] [address] Care Team Providers Care Instructional Technology Director Name Role Phone Branden Lares MD Primary Care Provider Encounter Details Date Type Department Care Team (Late st Contact Info) Description 05/26/2023 Abstract [facility] Primary Care [facility] [address] [place] [address] Dianne Green, [facility] [address] [place] [address] Social History Tobacco Use Types Packs/Day Years [...] Date Efrain rded Speak language other than French at home Not on file 04/09/2023 Want [...] on filedocumented in this encounter Care Teams Instructional Technology Director Relationship Specialty Start Date End Date Branden Lares MD [address] [place] [address] PCP - General Internal Medicine/Pediatrics 01/08/22 documented as of this encounter
--- OUTSIDE RECORDS SUMMARY | 2024-02-07 11:23 | XMS_ITS | Encounter Summary ---
Author Organization [facility] Address [address] [place] [address] Phone [email or web address] Care Team Providers Care Educational Technician Name Role Phone Provider, No Primary Care Provider Unavailabl e Reason for Visit * Reason Comments Return to Work / Duty Encounter Details Date Type Department Care Team (Latest Contact Info) Description 07/23/2021 2:00 PM EDT Clinical Support [facility] [address] [facility] [address] [place] [address] Rebecca Shannon RN [address] [place] [address] Return to work evaluation (Primary [...] Sign Reading Time Taken Comments Blood Pressure 144/88 07/23/2021 2:03 PM EDT Pulse 50 07/23/2021 2:03 PM EDT Temperature 36.7 ??C (98.1 ??F) 07/23/2021 2:03 PM ED T Respiratory Rate 16 07/23/2021 2:03 PM EDT Oxygen Saturation 96% 07/23/2021 2:03 PM EDT Inhaled Oxygen Concentration - - Weight - - Height - - Body Mass Index - - documented in this encounter Patient Instructions * Patient Instructions* Rebecca Shannon RN - 07/23/2021 2:00 PM EDT RTW regular duty 07/23/21 Follow up with your MD for new/ worsening symptoms documented in this encounter Progress Notes * Rebecca Shannon RN - 07/23/2021 2:00 PM EDT Willie Giron Jr is a 51 y.o. male who presents for personal return to work. ?? WD ID:[id number] Employer: [employer] 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 LDW: 07/14/21 RELEASE: 07/18/21 ?? PMLOA. TM states after being seen here 07/18/21 he went back to [facility] to be evaluated. TM had chest Xrays and was diagnosed with pneumonia. TM was given steroids and antibiotics. TM states he is now feeling much better. No lightheadedness or dizziness. TM breathing unlabored. TM was released toRTW 07/23/21. TM states he feels ready and able to RTW. Mary Shannon RN Visit Vitals BP 144/88 Pulse 50 Temp 98.1 ??F Resp 16 SpO2 96% Smoking Status Never Smoker PHQ-9 Total Score: 0 (07/23/2021 2:08 PM) ICD-10-CM ICD-9-CM 1. Return to work evaluation Z76.89 V72.85 Patient Instructions RTW regular duty 07/23/21 Follow up with your MD for new/ worsening symptoms Rebecca Shannon RN documented in this encounter Plan of Treatment Not on file documented as of this encounter Visit Diagnoses Diagnosis Return to work evaluation- Primary Other specified examination documented in this encounter Care Teams Educational Technician Relationship Specialty Start Date End Date Provider, FRANCIA Leigh [address] PCP - General Welding Machine Operator Helper Gas 07/18/21 documented as of this encounter
--- OUTSIDE RECORDS SUMMARY | 2024-02-07 11:23 | XMS_ITS | Encounter Summary ---
Author Organization [employer] Address [address] [place] [address] Care Team Providers Care Truck Greaser Name Role Phone Branden Lares MD Primary Care Provider [phone] Reason for Visit * Reason Onset Date Comments la 08/14/2022 Encounter Details Date Type Department Care Team (Late st Contact Info) Description 08/14/2022 Telephone [facility] Primary Care - [place] [address] [place] [phone] Branden Lares MD [address] [place] [phone] la Social History Tobacco Use Types Packs/Day Years Used Date Smoking Tobacco: Never Smokeless Tobacco: Never Sex and Gender Information Value Date Recorded Sex Assigned at Not on file Legal Sex Male 5:48 PM CDT Gender Identity Not on file Sexual Orientation Not on file documented as of this encounter Miscellaneous Notes * Telephone Encounter - Meaghan Coley - 08/14/2022 12:52 PM EDT Patient is calling stating that his job sent over some [facility] paperwork for Dr. Lares to fill out. Patient is wanting to see if he can get an update if this has been done. Patient states they are onlying needing Dr. Lares office visit notes. He is needing 08/04/22, 08/10/22 Fax Number Atten: Deann [phone] Claim Number [id number] documented in this encounter Plan of Treatment Not on file documented as of this encounter Visit Diagnoses Not on filedocumented in this encounter Care Teams Truck Greaser Relationship Specialty Start Date End Date Branden Lares MD [address] [place] [address] PCP - General Internal Medicine/Pediatrics 01/08/22 documented as of this encounter
--- OUTSIDE RECORDS SUMMARY | 2024-02-07 11:23 | XMS_ITS | Encounter Summary ---
Author Organization [facility] Address [address] [place] [address] Phone [email or web address] Care Team Providers Care Eyewear Manufacturing Tech Name Role Phone Unavailable Primary Care Provider Unavailabl e Encounter Details Date Type Department Care Team (Late st Contact Info) Description 04/27/[address] [place] [phone] [place] [address] [place] [phone] Social History Tobacco Use Types Packs/Day Years Used Date Smoking Tobacco: Never Assessed Sex and Gender Information Value Date Recorded Sex Assigned at Not on file Legal Sex Male 7:14 AM CDT Gender Identity Not on file Sexual Orientation Not on file documented as of this encounter Miscellaneous Notes * Telephone Encounter - Yocasta Salcedo RN - 04/27/2018 11:50 AM EST Call from TM stating he has been on medications for his back. Reports use of Ibuprofen and methocarbamol. Reviewed he can not use methocarbamol but 8 hours prior to work d/t possible SE. TM voiced understanding. States he has px from PCP office of Dr. Sonja Chung in [place]. Has also seen a specialist, DR. Orantes and is going ahead with an MRI Wednesday. No restrictions and not placed off work. Discussion of PT. Reports continued issues with back pain. Reports last incident was in the summer in August when all he did was turn to put on his seat belt. No BRINDA at work mentioned but he states he injured his back years ago at work. Has been off previously with STD for his back. ? Last time. Reviewed if placed off work he would need a release to RTW and no use of sedation meds. Voice understanding. I can not update TM's med list b/c he is not here for an actual visit in [facility]. Reports he has had an injection from and feels 50% better . TM states he can still work [employer] jobs. Yocasta Salcedo RN ARCH TECHNICIAN documented in this encounter Plan of Treatment Not on file documented as of this encounter Visit Diagnoses Not on filedocumented in this encounter
--- OUTSIDE RECORDS SUMMARY | 2024-02-07 11:23 | XMS_ITS | Encounter Summary ---
Author Organization [employer] Address [address] [place] [address] Care Team Providers Care Radio Interference Expert Name Role Phone Branden Lares MD Primary Care Provider [phone] Reason for Visit * Reason Comments General Illness covid at home test Encounter Details Date Type Department Care Team (Late st Contact Info) Description 05/26/2022 2:30 PM EST Office Visit [facility] Primary Care - [address] [phone] Bobby Tomas MD [address] [place] [address] Acute cough (Primary Dx); COVID-19 Social History Tobacco Use Types Packs/Day Years Used Date Smoking Tobacco: Never Smokeless Tobacco: Never Sex and Gender Information Value Date Recorded Sex Assigned at Not on file Legal Sex Male 5:48 PM CDT Gender Identity Not on file Sexual Orientation Not on file documented as of this encounter Last Filed Vital Signs Vital Sign Reading Time Taken Comments Blood Pressure 163/89 05/26/2022 2:32 PM EST Pulse 64 05/26/2022 2:32 PM EST Temperature 37.3 ??C (99.1 ??F) 05/26/2022 2:32 PM ES T Respiratory Rate - - Oxygen Saturation - - Inhaled Oxygen Concentration - - Weight 150.6 kg (332 lb) 05/26/2022 2:32 PM EST Height 185.4 cm (6' 1 ) 05/26/2022 2:32 PM EST Body Mass Index 43.8 05/26/2022 2:32 PM EST documented in this encounter Progress Notes * Bobby Tomas - 05/26/2022 2:30 PM EST Last Visit Here: 01/08/2022 Branden Lares MD Reason for Today's Visit: General Illness (covid at home test ) HPI: Patient began to feel ill over the weekend. He is experiencing a runny nose, headache, irritated eyes, dizziness, productive cough, and is overall lethargic. He took a home test that tested positive for COVID. He felt the worse Wednesday and Wednesday and had a fever of 101 F, but says that he feelsa lot better today. Pt states he has tried several different OTC medications for cold and flu, day and night including a nose spray. Patient is concerned because he has had COVID several times in thepast and almost developed pneumonia because of it. Patient denies any underlying lung issues. Patient is also experiencing pain in his left side from consistent coughing. Vitals: 05/26/22 1432 BP: (!) 163/89 Pulse: 64 Temp: 99.1 ??F (37.3 ??C) No results found for: HEMOGLOBIN, HEMOGLOBIN, CREATININE POCT: Results for orders placed or performed in visit on 05/26/22 (from the past 4 hour(s)) POCT KIERA Influenza + COVID Status: None Result Value Ref Range POCT KIERA INFLUENZA A Negative POCT KIERA INFLUENZA B Negative POCT KIERA COVID-19 Negative VALID ON-BOARD CONTROL Yes RECENT RADIOLOGY: No results found. ASSESSMENTS: 1. Acute cough 2. COVID-19 ORDERS: Orders Placed This Encounter Procedures ??? POCT KIERA Influenza + COVID CLINIC TREATMENT (if any): MEDS PRESCRIBED TODAY: (Both New Rx and Refills) Requested Prescriptions Signed Prescriptions Disp Refills ??? benzonatate (TESSALON) 200 MG capsule 50 capsule 0 Sig: Take 1 capsule (200 mg total) by mouth 3 (three) times daily as needed for Cough for up to 7 days. ??? promethazine-dextromethorphan (PROMETHAZINE-DM) 6.25-15 mg/5 mL syrup 473 mL 1 Sig: Take 5 mLs by mouth 4 (four) times daily as needed for Cough for up to 7 days. FOLLOW-UP: No follow-ups on file. DISCUSSION: BOBBY TOMAS MD 32:46 PM The following sections of this note were completed by a scribe: History of present illness, review of systems, physical exam, assessment and plan (non- video recorder mechanic). Documentation is by Margarita Uriarte, acting as a scribe in the sections noted above for the above signed provider. 05/26/2022, 2:46 PM EST I, BOBBY TOMAS MD, have read and agree with the documentation that has been completed regarding this visit. By signing this record, I attest that the documentation was completed in my physical presence and is an accurate record of the encounter. CURRENT MEDS: Current Outpatient Medications Medication Instructions ??? benzonatate (TESSALON) 200 mg, Oral, 3 times daily PRN ??? glucosamine-chondroitin 500-400 mg tablet 1 tablet, Oral ??? multivitamin (multivitamin) per tablet 1 tablet, Oral ??? promethazine-dextromethorphan (PROMETHAZINE-DM) 6.25-15 mg/5 mL syrup 5 mLs, Oral, 4 times daily PRN ACTIVE PROBLEMS: Patient Active Problem List Diagnosis ??? DDD (degenerative disc disease), cervical ??? Hypermetropia ??? Lateral epicondylitis of elbow ??? Neck pain ??? Presbyopia ??? Psychosexual dysfunction with inhibited sexual excitement ??? Encounter for hearing examination following failed hearing screening ??? Encounter for general adult medical examination without abnormal findings ??? Other follow-up examination ??? Return to work evaluation ??? Low back pain ??? Other examination of ears and hearing ??? Acute cough ??? COVID-19 ROS is negative other than what is discussed in HPI. PHYSICAL: Gen: Alert, Oriented x3 HEENT: Atraumatic, PEERLA, OP moist and clear Neck: No adenopathy or thyromegaly Lungs: CTA with wheeze, rhonchi, or rales CV: Heart RRR without murmur or gallop, Pulses 2+ throughout Abd: Normoactive bowel sounds. Nontender without mass. : Deferred Ext: Warm and well perfused without edema Skin: No rash or lesions Neuro: No gross deficits in Cranial nor Peripheral Nerves Psych: Non anxious nor depressed PAST MEDICAL HISTORY: History reviewed. No pertinent past medical history. FAMILY HISTORY: History reviewed. No pertinent family history. SOCIAL HISTORY: Social History Social History Narrative ??? 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 encounter Plan of Treatment Not on file documented as of this encounter Procedures Procedure Name Priority Date/Time Associated Diagnosis Comments POCT KIERA INFLUENZA + COVID Routine 05/26/2022 3:10 PM EST Acute cough documented in this encounter Results * POCT KIERA Influenza + COVID (05/26/2022 3:10 PM EST) POCT KIERA INFLUENZA A Negative POCT KIERA INFLUENZA B Negative POCT KIERA COVID-19 Negative VALID ON-BOARD CONTROL Yes 05/26/2022 3:10 PM EST us Bobby Tomas MD POINT OF CARE TEST ORDERABLES F inal Result documented in this encounter Visit Diagnoses Diagnosis Acute cough- Primary COVID-19 documented in this encounter Care Teams Radio Interference Expert Relationship Specialty Start Date End Date Branden Lares MD [address] [place] [address] PCP - General Internal Medicine/Pediatrics 01/08/22 documented as of this encounter
--- OUTSIDE RECORDS SUMMARY | 2024-02-07 11:23 | XMS_ITS | Encounter Summary ---
Author Organization [facility] Address [address] [place] [phone] Phone [email or web address] Care Team Providers Care Manager Licensing Name Role Phone Unavailable Primary Care Provider Unavailabl e Encounter Details Date Type Department Care Team (Late st Contact Info) Description 04/08/2021 2:45 PM EST Telemedicine [facility] [address] [place] [address] Lily Kolb NP [address] [place] [address] Encounter for fitness for duty [...] as of this encounter Progress Notes * Lily Kolb NP - 04/08/2021 2:45 PM EST TELEHEALTH VISIT: Today's visit was conducted via telehealth using audio only (telephone) due to cancellation of non-essential in person visits in response to the CoVid-19 pandemic. TM consented to the telehealth process at onset of visit by responding to the following statements: I understand that telehealth has certain limitations regarding diagnosis and treatment of medical conditions, and I consent to participate in a telehealth visit today. Response: Yes I acknowledge that I can receive a copy of the [employer] Notice of Privacy Practices from the [employer] website ([email or web address]) and that my protected health information may only be shared as outlined in that Notice. Response: Yes I understand that this Consent for Treatment is valid from today's date until: the provider-patientrelationship is terminated; a new healthcare dental detail representative is appointed; or I revoke consent. Response: Yes Are you currently in the state of [place]? Yes Are you in a private space, or a space where you feel comfortable discussing your health care? Yes Subjective: Willie Giron Jr is a 51 y.o. male. Chief Complaint: covid screening History Reviewed: The following portions of the patient's chart were reviewed in this encounter and updated as appropriate: Tobacco Allergies Meds Problems Med Hx Surg Hx Fam Hx Personal return to work evaluation related to covid-19. Willie Giron Jr 1970 Work day ID: [id number] Shift: 2 Off work due to positive covid-19 test, tested on 04/04/21 Symptom onset date : 04/01/21 Current symptom status: improved, just feel like I have a cold Fever free for 24 hours or more without antipyretics: Yes. Contacted by local health department? no Notes: NA Review of Systems See HPI Visit Vitals Smoking Status Never Smoker Objective: Physical Exam No exam due to telephone only visit. Assessment/Plan: Diagnoses and all orders for this visit: Encounter for fitness for duty examination States HR advised him to have antigen test tomorrow and if negative RTW. Advised pt if positive will need to contact clinic. 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
--- OUTSIDE RECORDS SUMMARY | 2024-02-07 11:23 | XMS_ITS | Encounter Summary ---
Author Organization [facility] Address [address] [place], [place] [address] Phone [email or web address] Care Team Providers Care Medical Imaging Technician Name Role Phone Unavailable Primary Care Provider Unavailabl e Reason for Referral * Imaging (Routine) - Closed Specialty Diagnoses / Procedures Referred By Contac t Referred To Contact Radiology Diagnoses Finger injury, initial encounter Procedures X-ray Fingers 2+ Views Right Alma Cortez PA [address] [place] [address] Phone: tel: fax: Referral ID Status Reason Start Date Expiration Date Visits Re quested Visits Authorized [id number] Closed 11/08/2020 05/07/2021 1 1 Reason for Visit * Reason Comments Upper body pain / injury / swelling RIGH T INDEX FINGER Encounter Details Date Type Department Care Team (Late st Contact Info) Description 11/08/2020 10:00 AM EDT Office Visit [facility] [address] [place] [address] Alma Cortez PA [address] [place] [address] Finger injury, initial encounter (Primary Dx) Social History Tobacco Use Types Packs/Day Years Used Date Smoking Tobacco: Never Smokeless Tobacco: Never Tobacco Cessation:Counseling Given: No Alcohol Use Standard Drinks/Week Comments Never 0 (1 standard drink = 0.6 oz pur e alcohol) Sex and Gender Information Value Date Recorded Sex Assigned at Not on file Legal Sex Male 7:14 AM CDT Gender Identity Not on file Sexual Orientation Not on file documented as of this encounter Last Filed Vital Signs Vital Sign Reading Time Taken Comments Blood Pressure 126/82 11/08/2020 9:59 AM EDT Pulse 61 11/08/2020 9:59 AM EDT Temperature 36.8 ??C (98.2 ??F) 11/08/2020 9:59 AM ED T Respiratory Rate 16 11/08/2020 9:59 AM EDT Oxygen Saturation 96% 11/08/2020 9:59 AM EDT Inhaled Oxygen Concentration - - Weight 148 kg (326 lb) 11/08/2020 9:59 AM EDT Height 184.2 cm (6' 0.5 ) 11/08/2020 9:59 AM EDT Body Mass Index 43.61 11/08/2020 9:59 AM EDT documented in this encounter Patient Instructions * Patient Instructions* RYLEE Yarbrough - 11/08/2020 10:00 AM EDT 1. Will have TM get an x-ray off site to rule out underlying fracture. He will use a finger splint for now. Ice several times a day and use Voltaren gel as directed, since he does not want to take too many oral agents. May need to refer to hand specialist to rule out tendon injury, if no fracture noted. documented in this encounter Progress Notes * RYLEE Yarbrough - 11/08/2020 10:00 AM EDT Subjective: Willie Giron Jr is a 50 y.o. male. Chief Complaint: Chief Complaint Patient presents with ??? Upper body pain / injury / swelling RIGHT INDEX FINGER Pt c/o right index finger pain and swelling x 2 1/2 weeks. Pt states he was putting his boot on sitting on the bench when another TM stood up, the bench moved and he jerked with his finger in the strap of his boot and heard a loud pop. Pt has tried Ibuprofen and ice [place] CCMA Over the past 2 weeks, how often have you been bothered by any of the following problems: Little interest or pleasure in doing things? 0 Feeling down, depressed or hopeless? 0 Total Score: 0 History Reviewed: The following portions of the patient's chart were reviewed in this encounter and updated as appropriate: Tobacco Allergies Meds Problems Med Hx Surg Hx Fam Hx TM states on 10/21/20, he was putting on his right shoe and had his right index finger in the loop behind the shoe, when the landry sitting next to him stood up and it caused the bench to lift up some andcome down hard, startling the TM. He states he brought his foot down hard in response, pulling the finger downward and twisting it. States he thought it would get better with icing it and taking someibuprofen occ. However, it is still swollen and painful. Little numb at times. Can not make a full fist. He is right handed and it is interfering with his activities. Denies any prior injury. Most ofhis pain is in the proximal portion of his finger and slightly to the ulnar side/web of finger. Review of Systems Musculoskeletal: Positive for arthralgias and joint swelling. See HPI Neurological: Positive for numbness (see HPI). Visit Vitals BP 126/82 (BP Location: Left arm, Patient Position: Sitting, BP Cuff Size: Adult) Pulse 61 Temp 98.2 ??F (Temporal) Resp 16 Ht 6' 0.5 Wt (!) 326 lb SpO2 96% BMI 43.61 kg/m?? Smoking Status Never Smoker BSA 2.75 m?? Objective: Physical Exam Vitals reviewed. Constitutional: General: He is not in acute distress. Appearance: He is obese. He is not ill-appearing, toxic-appearing or diaphoretic. Musculoskeletal: Comments: Inspection-right hand/fingers Swelling: mild down whole index finger Erythema: none Discoloration: none Deformity: None Scars: none Lesions: no visible lesions Atrophy: none Palpation Warmth: normal Tenderness: PIP joint, between CMP/PIP joint index finger (completely around region and into the web between index finger and RMF) Mass: none Crepitus: no Vascular Pulses: present and normal Capillary Refill: normal Neuromotor ROM: limited by pain. Can not fully flex > extend index finger Sensation: Light touch: Impaired Strength: limited by pain with flexion of fingers Packing House Supervisor: limited by pain Special Tests Grind: not performed Triggering: none Stability: difficult to assess. ROM is diminished and too tender to check Assessment/Plan: Diagnoses and all orders for this visit: Finger injury, initial encounter Comments: -right index finger Orders: - X-ray Fingers 2+ Views Right; Future Patient Instructions 1. Will have TM get an x-ray off site to rule out underlying fracture. He will use a finger splint for now. Ice several times a day and use Voltaren gel as directed, since he does not want to take too many oral agents. May need to refer to hand specialist to rule out tendon injury, if no fracture noted. documented in this encounter Plan of Treatment Scheduled Orders Name Type Priority Associated Diagnoses Orde r Schedule X-ray Fingers 2+ Views Right Imaging Routine Finger injury, initial encounter Expected: 11/08/2020 (Approximate), Expires: 11/08/2021 documented as of this encounter Visit Diagnoses Diagnosis Finger injury, initial encounter- Primary documented in this encounter
--- OUTSIDE RECORDS SUMMARY | 2024-02-07 11:23 | XMS_ITS | Encounter Summary ---
Author Organization [facility] Address [address] [place] [address] Phone [email or web address] Care Team Providers Care Patient Observation Assistant Name Role Phone Unavailable Primary Care Provider Unavailabl e Reason for Visit * Reason Comments Return to Work / Duty Encounter Details Date Type Department Care Team (Latest Contact Info) Description 09/07/2018 10:00 AM EDT Clinical Support [facility] [address] [place] [address] Maria Guadalupe Breaux NP [address] [place] [address] Encounter for other administrative examinations (Primary Dx); Degenerative disc disease, lumbar Social History Tobacco Use Types Packs/Day Years Used Date Smoking Tobacco: Never Assessed Sex and Gender Information Value Date Recorded Sex Assigned at Not on file Legal Sex Male 7:14 AM CDT Gender Identity Not on file Sexual Orientation Not on file documented as of this encounter Last Filed Vital Signs Vital Sign Reading Time Taken Comments Blood Pressure 134/80 09/07/2018 9:56 AM EDT Pulse 59 09/07/2018 9:56 AM EDT Temperature 37.2 ??C (99 ??F) 09/07/2018 9:56 AM EDT Respiratory Rate 14 09/07/2018 9:56 AM EDT Oxygen Saturation 98% 09/07/2018 9:56 AM EDT Inhaled Oxygen Concentration - - Weight - - Height - - Body Mass Index - - documented in this encounter Patient Instructions * Patient Instructions* Maria Guadalupe Breaux NP - 09/07/2018 10:00 AM EDT RTW, no restrictions. Cont care with the specialist. F/u IHS as needed. documented in this encounter Progress Notes * Maria Guadalupe Breaux NP - 09/07/2018 10:00 AM EDT Subjective Willie Giron Jr is a 48 y.o. male who presents for personal return to work. 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 LDW: 08/21/2018 DOS: 08/25/2018 PROCEDURE: Left lumbar rhizotomy SURGEON: Dr. Jorje Orantes [place] FRANCIA RELEASE: PMLOA. TM presents to return to work following time off for rhizotomy. States that he had a scheduled left lumbar rhizotomy on 08/25/2018. States procedure went well. States that his pain is so much better. States that he feels ready to return to work. Denies any new problems or concerns. TM does nothave a release at this time. TM is scheduled to have rhizotomy of the right side on 09/15/2018. Called office and they state they will send over a release - verbally said okay katelynn Rodarte (provider) to return to work and will fax release. Veronique Salas RN History Reviewed: Allergies Meds Problems Objective Visit Vitals BP 134/80 Pulse 59 Temp 99 ??F (Oral) Resp 14 SpO2 98% HPI As noted in CC. TM states he is doing much better after his most recent rhizotomy. Very pleased with outcome. No current radiation or n/t to the LE's. Has occasional pain in the left buttock. No b/b changes. Working reg duty. Review of Systems Constitutional: Negative. Gastrointestinal: Negative bowel changes. Genitourinary: Negative bladder changes. Musculoskeletal: Negative for back pain. Neurological: Negative for weakness and numbness. PHQ-2 Total Score: 0 Physical Exam Constitutional: He appears well-developed and well-nourished. No distress. Nursing note and vitals reviewed. Back Exam Tenderness The patient is experiencing no tenderness. Range of Motion The patient has normal back ROM. Tests Straight leg raise right: negative Straight leg raise left: negative Other Gait: normal Erythema: no back redness Assessment: ICD-10-CM ICD-9-CM 1. Encounter for other administrative examinations Z02.89 V68.89 2. Degenerative disc disease, lumbar M51.36 722.52 No orders of the defined types were placed in this encounter. Patient Instructions RTW, no restrictions. Cont care with the specialist. F/u IHS as needed. documented in this encounter Plan of Treatment Not on file documented as of this encounter Visit Diagnoses Diagnosis Encounter for other administrative examinations- Primary Degenerative disc disease, lumbar documented in this encounter
--- OUTSIDE RECORDS SUMMARY | 2024-02-07 11:24 | XMS_ITS | Encounter Summary ---
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 Phone Branden Lares MD Primary Care Provider [phone] Reason for Visit * Reason Onset Date Comments COVID + 05/25/2022 Encounter Details Date Type Department Care Team (Late st Contact Info) Description 05/25/2022 Telephone [facility] - [place] [address] [place] [address] Genesis Jha, [employer] [address] [place] [address] COVID + Social History Tobacco Use Types Packs/Day Years Used Date Smoking Tobacco: Never Smokeless Tobacco: Never Sex and Gender Information Value Date Recorded Sex Assigned at Not on file Legal Sex Male 5:48 PM CDT Gender Identity Not on file Sexual Orientation Not on file documented as of this encounter Miscellaneous Notes * Telephone Encounter - Dulce Veras - 05/25/2022 2:43 PM EST Can you schedule him a telehealth maybe? MANAGER * Telephone Encounter - Juliette Brito - 05/25/2022 12:02 PM EST Pt called in because he tested positive for COVID this weekend. Pt is has congestion, sore throat, fever over weekend. Pt had COVID mid 2021 and developed COVID pneumonia at that time. PT concerned he may develop it this time as well. Pt wanting to speak to someone on supportive meds. Pt uses [facility] in [place]. Best call back [phone]. Ok to leave a detailed message. 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
[2024-02-07 12:08] VITALS: BP 149/83; PULSE 55; RESP 14; O2SAT 99; BMI 40.2
--- NOTE | 2024-02-07 12:28 | A.OFFVIS_ITS ---
[facility] Disclaimer: The information contained in this section may have been updated after the patient was seen, as this information can be updated by other users. Medical History (Updated 10/04/23 @ 16:06 by Veronique Hernández APRN) MACO (obstructive sleep apnea) Surgical History (Updated 10/04/23 @ 14:02 by Louann Estrada RN) H/O hernia repair Family History (Updated 10/04/23 @ 14:02 by Louann Estrada RN) Other No significant family history Social History (Updated 10/04/23 @ 14:30 by Louann Estrada RN) Smoking Status: Never smoker alcohol intake: never current occupational status: other Travel in the last 8 weeks: None PM Subjective & Objective Subjective Subjective:: Patient is a pleasant 53-year-old male who presents today for 1 month follow-up. Patient does rate his pain today a 5 out of 10. He denies any new trauma or injury. He does state that he is experiencing more overall back pain. Patient does state that where he was trying to hold off having his repeat RFA that he would like to proceed forward because it is starting to really interfere with his ability perform activities of daily living such as cooking and cleaning. Patient does have a history of significant improvement with the previous RFA's with at least 80% relief and does nearly get almost 2 years with each of these injections. Patient is coming up to about the 2-year erasto in February from his last RFA. Patient is on gabapentin from an outside provider. He has tried and failed conservative therapy including continued at home stretching exercise for longer than 12 weeks. His Leonard has been reviewed and is appropriate. Review of Systems: General: No recent weight changes, no fever, no sleep disturbances Respiratory: No cough, no shortness of air, no recurring pulmonary infections Cardiovascular/peripheral vascular: No chest pain, no palpitations, no edema, no shortness of breath Gastrointestinal: No new onset incontinence, normal bowel movements reported Genitourinary: No new onset incontinence Musculoskeletal: Low back pain Psychiatric: [Normal mood/affect] Neurological: [Denies weakness in extremities], [denies balance issues] Pain at rest (0-10 scale): 5 Objective Objective:: Physical Exam: General: Alert and oriented x3, no acute distress, pleasant and cooperative Lungs: Respirations even and unlabored, symmetrical chest expansion Eyes: PERRL Musculoskeletal: Flexion and extension of lumbar [spine] somewhat guarded secondary to pain, [antalgic gait noted] positive Kemps test Neurological: Speech clear, no gross sensory deficit Has patient had previous pain injection?: No Conservative treatment options previously tried: Home exercise plan Length of treatment: Longer than 12 weeks Meds Home Medications and Allergies Home Medications ?Medication ?Instructions ?Recorded ?Confirmed ?Type diclofenac sodium 75 mg 75 mg PO BID Pain 10/04/23 02/07/24 History tablet,delayed release gabapentin 300 mg capsule 300 mg PO TID Pain 10/04/23 02/07/24 History New Prescriptions to Start Prescriptions: Assessment and Plan *Assessment and plan (1) Lumbar facet arthropathy: Status: Acute Category: Medical Code(s): M47.816 - Spondylosis without myelopathy or radiculopathy, lumbar region (2) Degenerative disc disease, lumbar: Status: Acute Category: Medical Code(s): M51.36 - Other intervertebral disc degeneration, lumbar region Plan Patient is experiencing worsening pain throughout his low back with limited range of motion and a positive Kemps test. I did discuss with the patient the risk and benefits of repeat lumbar RFA and he would like to proceed forward with this plan of care. Patient has tried and failed oral medications, heat and ice, topicals, at home stretching exercise for longer than 12 weeks. Patient has had lumbar RFA's in the past with his last one almost 2 years ago providing 80% relief up until about the last month or 2. Patient has been given better function with these injections. He would like to proceed forward with a repeat RFA. Patient will be scheduled for lumbar radiofrequency ablation bilaterally L4-L5 and L5-S1 under fluoroscopy. Patient has been instructed to contact the clinic with any concerns before the next appointment. Dr. Albrecht has reviewed this note and agrees with this plan of care. This note was dictated using voice recognition software and make contain errors or omissions. All injections are used with Lidocaine or Bupivacaine and Depo Medrol.
== END 2024-02-07 23:59 | disposition home or self-care (01) ==
LOC: SC.PAIN 11:20
PROVIDERS: PCP Internal Medicine Cardiovascular Disease; Visit Provider Nurse Practitioner Family
DX: M47.816 Spondylosis without myelopathy or radiculopathy, lumbar region (principal); M51.360 Other intervertebral disc degeneration, lumbar region with discogenic back pain only; Z73.89 Other problems related to life management difficulty
CPT/HCPCS: 99212; G0463

== ENCOUNTER 2024-03-21 13:08 | Day surgery (SDC) | payer BC, SELFPAY ==
[2024-03-21 13:29] VITALS: BP 146/89; PULSE 54; RESP 16; TEMP 36.1; O2SAT 98; BMI 41.5
[2024-03-21 14:14] VITALS: BP 160/88; PULSE 61; RESP 16; O2SAT 97
--- NOTE | 2024-03-21 14:39 | P.PCN_ITS ---
Procedure Date: 03/21/24 Time: 14:00 Anesthesiologist:: Jose Mercado CRNA Complications:: None Pre-procedure Diagnosis:: Degenerative disc lumbar spine multilevels. Lumbar radiculopathy. Lumbar spondylosis. Multilevel lumbar facet arthropathy. Post-procedure Diagnosis:: Same. Indications for Procedure:: Patient is a very pleasant 54-year-old male who comes our clinic today for lumbar facet radiofrequency ablation. Patient describes low lumbar back pain as constant, dull, aching. Patient reports lumbar back pain intensifies with lumbar flexion, extension, left and right rotation. He rates his pain 8/10. Procedure Details:: Procedure Details: Lumbar RFA Informed consent was obtained and the risk and benefits of the procedure was explained to the patient. Patient was placed prone on the procedure table. The patient was prepped and draped in sterile fashion. C-arm fluoroscopy was used to view the lumbar spine. The skin and subcutaneous tissues were anesthetized using lidocaine. I placed 20-gauge RF needles into the facet joints of L3-L4, L4-L5 and L5-S1 bilaterally. We underwent sensory stimulation. There is good sensory stimulation at 0.8 V. We underwent motor stimulation. There is no motor stimulation at 2 V. We then anesthetized these levels with lidocaine and Depo- Medrol. I used a total of 40 mg Depo-Medrol for all 3 levels. I then burned all 3 levels of L3-L4, L4-5 and L5-S1 bilaterally for 4 minutes at 80 ?C. Patient tolerated the procedure well with no complication. Plan and Disposition:: We will follow-up with this patient in 2 weeks. We will reevaluate her symptoms at that time. Plan and Disposition:: Patient was discharged without incident.
[2024-03-21] MEDS: LIDOCAINE 1% 5ML PF VIAL 5 ML (15:04)
[2024-03-21] MEDS: BUPIVACAINE 0.25% 10ML INJ 25 MG IJ (15:06)
[2024-03-21] MEDS: methylPREDNISolone ACETATE 80MG/ML VIAL 80 MG (15:06)
== END 2024-03-21 14:14 | disposition home or self-care (01) ==
LOC: SC.PAINP 13:08
PROVIDERS: PCP Internal Medicine Cardiovascular Disease; Visit Provider Nurse Anesthetist, Certified Registered
DX: M47.816 Spondylosis without myelopathy or radiculopathy, lumbar region (principal); M51.16 Intervertebral disc disorders with radiculopathy, lumbar region
CPT/HCPCS: 64635; 64636; J1010